=== PATIENT | female | born 1950 | race Caucasian/White ===

== ENCOUNTER 2018-10-19 07:16 | Inpatient (IN) | payer MEDICARE ==
[~2018-10-19] VITALS: Ht 160 cm; Wt 109.8 kg
[~2018-10-19 07:16] MED LIST: AC325T; AC325T PO; ACCUFLORA PO; ACID1TAB PO; ACTOS15 MG; ACTOS15 MG PO; AMIO200T4 PO; AMLO10TA82 PO; AMLO5TAB2 PO; APIX5TAB PO; APIX5TAB2 PO; ASCO500T20 PO; ASP81CT PO; ASP81TEC PO; ASPI-245 PO; ASPI-587 PO; ASPI-892; ATEN25TA; ATRV10T PO; B12; BISM262T13 PO; BSC10SU PR; CEFU250T11 PO; CEPH500C PO; CHOL2000 PO; CITA10TA PO; COD1CAPS16 PO; CYAN100021 PO; DABI150C2 PO; DILT240C53 PO; DXCC100C PO; Diltiazem Hcl PO; ENLP2.5T PO; FERR27TA PO; FRSM40T PO; FURO-125 PO; FURO10VI IV; FURO40TA4 PO; GLIM4TAB PO; GLMP1T PO; GLMP2T PO; GLMP4T; GLMP4T PO; INSASP10V; INSASP10V SQ; INSR1U SC; INSU100C; INSU100I23 SC; IRBE1TAB18; LACT1CAP57 PO; LISI20TA PO; LISI40TA PO; LVT.025T PO; MECL25TA56 PO; METR-145 PO; MTP50T PO; MTR250T PO; MULT-1029 PO; NS10S IV; NST15PW TOP; NTR.4SL; NYST15CR3 TOP; NYST1POW15 TOP; ONDAN4ODT PO; OXC5T PO; Oxygen; PANT40TA3 PO; PNT40TEC PO; POLY17PO23 PO; POTA10CA43 PO; PREPARATION H S48 EA PR; PROM25TA14 PO; Polyethylene Glycol PO; RT-COMBINH IH; SCOP1PAT TD; SENN1TAB76 PO; SITA1TAB6; SITA1TAB6 PO; SPIR25TA PO; SPRN25T PO; SULF1TAB38 PO; TEMA15CA54
--- NOTE | 2018-10-19 07:45 | NUR ---
Pt reports not taking any home meds at this time.
--- NOTE | 2018-10-19 08:01 | ED General ---
General Chief Complaint: Cardiac/General Problems Stated Complaint: SWELLING;CONSTIPATION Source of Information: Patient Exam Limitations: No Limitations History of Present Illness Date Seen by Provider: Oct 19, 2018 Time Seen by Provider: 07:30 Initial Comments Here with report of constipation stating that she has not had a bowel movement for 2 days. Also complains of swelling of her legs and not feeling well. She states that she has had a air condition for several days and has been using hands. She states it's not helping very much. She has had problems essentially over the last week. She called her doctor's office and they were unable to get appointment for her until later this month for the patient. Today she was increasingly weak and not feeling well. Her son brought her for further evaluation. Denies chest pain specifically but is short of breath. States that she thinks she may be dehydrated but also notes that her legs are increasingly swollen. Has history of A. fib that was previously controlled but seems to be somewhat out of control currently with heart rate greater than 100. Did have a fall within the last week and states she bumped her head on the left side. Timing/Duration: 1 Week Severity: Moderate Modifying Factors: improves with Rest Associated Systoms: No Chest Pain, No Cough, No Fever/Chills, No Nausea/Vomiting; Shortness of Air, Weakness Allergies and Home Medications Allergies Coded Allergies: No Known Drug Allergies (Verified , 12/29/08) Uncoded Allergies: "LITTLE BLUE PILL" (Allergy, Mild, 12/29/08) Home Medications Amiodarone HCl 200 Mg Tablet, 400 MG PO DAILY, (Reported) TAKES 2 (200MG) TABLETS Diltiazem HCl 240 Mg Cap.er.24h, 240 MG PO DAILY, (Reported) Furosemide 20 Mg Tablet, 20 MG PO DAILY, (Reported) L. Acidophilus/Bulgaricus 1 Each Tablet, 1 TAB.CHEW PO TID Prescribed by: CAITY CRANE on 06/10/15950 Levothyroxine Sodium 25 Mcg Tablet, 25 MCG PO DAILY, (Reported) Metronidazole 500 Mg Tablet, 500 MG PO TID Prescribed by: CAITY CRANE on 06/10/15950 Pantoprazole Sodium 40 Mg Tablet.dr, 40 MG PO DAILY, (Reported) Potassium Chloride 10 Meq Capsule.sa, 10 MEQ PO EVERY OTHER DAY, (Reported) Promethazine HCl 25 Mg Tablet, 12.5-25 MG PO Q8H PRN for NAUSEA/VOMITING, (Reported) Sitagliptin Phos/Metformin Hcl 1 Each Tablet, 1 TAB PO BID, (Reported) Spironolactone 25 Mg Tablet, 25 MG PO BID, (Reported) Patient Home Medication List Home Medication List Reviewed: Yes Review of Systems Review of Systems Constitutional: see HPI; No chills, No fever EENTM: no symptoms reported, other (hx of macular degeneration and retinal detachment. Has limited or no vision.) Respiratory: no symptoms reported Cardiovascular: No chest pain; edema Gastrointestinal: No abdominal pain; constipation; No nausea, No vomiting Genitourinary: no symptoms reported : No Musculoskeletal: no symptoms reported Skin: no symptoms reported Psychiatric/Neurological: Denies Headache; Weakness All Other Systems Reviewed Negative Unless Noted: Yes Past Pzhkyhr-Mlvfzi-Xrvsbp Hx Past Med/Social Hx: Reviewed Nursing Past Med/Soc Hx Patient Social History Alcohol Use: Denies Use Recreational Drug Use: No Smoking Status: Never a Smoker 2nd Hand Smoke Exposure: No Recent Foreign Travel: No Contact w/Someone Who Travel: No Immunizations Up To Date Tetanus Booster (TDap): Unknown Date of Pneumonia Vaccine: Apr 11, 2012 Date of Influenza Vaccine: Feb 28, 2013 Seasonal Allergies Seasonal Allergies: Yes Past Medical History Surgeries: Yes Abdominal, Section, Orthopedic, Vascular Surgery Respiratory: Yes Pulmonary Embolism Currently Using CPAP: No Currently Using BIPAP: No Cardiac: Yes Atrial Fibrillation, Chronic Edema/Swelling, Heart Murmur, High Cholesterol, Hypertension, Peripheral Vascular Neurological: Yes Stroke, TIA Reproductive Disorders: Yes 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 Sexually Transmitted Disease: No HIV/AIDS: No Genitourinary: Yes Kidney Infection, Kidney Stones, Renal Failure, UTI-Chronic Gastrointestinal: Yes Gastroesophageal Reflux, Hemorrhoids, Gall Bladder Disease Musculoskeletal: Yes Arthritis Endocrine: Yes Diabetes, Non-Insulin dep HEENT: Yes Cataract, Macular Degeneration Loss of Vision: Bilateral Hearing Impairment: Denies Psychosocial: No Adverse Reaction/Blood Tranf: No Family Medical History Reviewed Nursing Family Hx Cardiovascular disease 03 MOTHER (stroke) 19 FATHER Diabetes mellitus 19 FATHER Heart disease 19 FATHER Heart Disease, Diabetes, Hypertension Physical Exam Vital Signs Vital Signs - First Documented 10/19/18 07:24 Temp 96.2 Pulse 111 Resp 22 B/P (MAP) 141/102 (115) Pulse Ox 97 O2 Delivery Room Air Capillary Refill : Greater Than 3 Seconds Height, Weight, BMI Height: 5'3" Weight: 190lbs. 0oz. [id number]; 30.89 BMI Method:Estimated General Appearance: No Apparent Distress, WD/WN HEENT: Pharynx Normal, Other (unequal pupil sizes patient states that is normal. She is essentially blind. Right pupil greater than left.) Neck: Non Tender, Supple Respiratory: Lungs Clear, Normal Breath Sounds Cardiovascular: Regular Rate, Rhythm, No Murmur Gastrointestinal: Non Tender, Soft Back: Normal Inspection, No CVA Tenderness, No Vertebral Tenderness Extremity: Normal Range of Motion, Non Tender, Pedal Edema (2+ to level of the knee bilateral) Neurologic/Psychiatric: Alert, Oriented x3 Skin: Normal Color, Warm/Dry Progress/Results/Core Measures Suspected Sepsis SIRS Temperature: Pulse: Respiratory Rate: Laboratory Tests 10/19/18 08:11: White Blood Count 9.3 Blood Pressure / Mean: Laboratory Tests 10/19/18 08:11: Creatinine 1.62H, INR Comment 1.2, Platelet Count 218, Total Bilirubin 1.0 Results/Orders Lab Results Laboratory Tests Test 10/19/18 08:11 10/19/18 08:44 Range/Units White Blood Count 9.3 4.3-11.0 10^3/uL Red Blood Count 4.56 4.35-5.85 10^6/uL Hemoglobin 14.6 11.5-16.0 G/DL Hematocrit 42 35-52 % Mean Corpuscular Volume 91 80-99 FL Mean Corpuscular Hemoglobin 32 25-34 PG Mean Corpuscular Hemoglobin Concent 35 32-36 G/DL Red Cell Distribution Width 13.4 10.0-14.5 % Platelet Count 218 130-400 10^3/uL Mean Platelet Volume 8.8 7.4-10.4 FL Neutrophils (%) (Auto) 81 H 42-75 % Lymphocytes (%) (Auto) 12 12-44 % Monocytes (%) (Auto) 7 0-12 % Eosinophils (%) (Auto) 1 0-10 % Basophils (%) (Auto) 0 0-10 % Neutrophils # (Auto) 7.5 1.8-7.8 X 10^3 Lymphocytes # (Auto) 1.1 1.0-4.0 X 10^3 Monocytes # (Auto) 0.6 0.0-1.0 X 10^3 Eosinophils # (Auto) 0.1 0.0-0.3 10^3/uL Basophils # (Auto) 0.0 0.0-0.1 10^3/uL Prothrombin Time 15.4 H 12.2-14.7 SEC INR Comment 1.2 0.8-1.4 Activated Partial Thromboplast Time 28 24-35 SEC Sodium Level 122 *L 135-145 MMOL/L Potassium Level 4.3 3.6-5.0 MMOL/L Chloride Level 92 L 98-107 MMOL/L Carbon Dioxide Level 17 L 21-32 MMOL/L Anion Gap 13 5-14 MMOL/L Blood Urea Nitrogen 25 H 7-18 MG/DL Creatinine 1.62 H 0.60-1.30 MG/DL Estimat Glomerular Filtration Rate 31 BUN/Creatinine Ratio 15 Glucose Level 108 H 70-105 MG/DL Calcium Level 9.3 8.5-10.1 MG/DL Corrected Calcium 9.4 8.5-10.1 MG/DL Magnesium Level 1.9 1.8-2.4 MG/DL Total Bilirubin 1.0 0.1-1.0 MG/DL Aspartate Amino Transf (AST/SGOT) 17 5-34 U/L Alanine Aminotransferase (ALT/SGPT) 11 0-55 U/L Alkaline Phosphatase 62 40-136 U/L Troponin I 0.039 H <0.028 NG/ML B-Type Natriuretic Peptide 830.9 H <100.0 PG/ML Total Protein 7.0 6.4-8.2 GM/DL Albumin 3.9 3.2-4.5 GM/DL Thyroid Stimulating Hormone (TSH) 2.33 0.35-4.94 UIU/ML Urine Color YELLOW Urine Clarity CLEAR Urine pH 5 5-9 Urine Specific [place] 1.015 L 1.016-1.022 Urine Protein 3+ H NEGATIVE Urine Glucose (UA) NEGATIVE NEGATIVE Urine Ketones NEGATIVE NEGATIVE Urine Nitrite NEGATIVE NEGATIVE Urine Bilirubin NEGATIVE NEGATIVE Urine Urobilinogen NORMAL NORMAL MG/DL Urine Leukocyte Esterase NEGATIVE NEGATIVE Urine RBC (Auto) NEGATIVE NEGATIVE Urine RBC NONE /HPF Urine WBC NONE /HPF Urine Squamous Epithelial Cells NONE /HPF Urine Crystals NONE /LPF Urine Amorphous Sediment FEW TIAN URATES H /LPF Urine Bacteria NEGATIVE /HPF Urine Casts NONE /LPF Urine Mucus NEGATIVE /LPF Urine Culture Indicated NO My Orders Orders - KELLI CASSIDY MD BNP (10/19/18 07:36) Cbc With Automated Diff (10/19/18 07:36) Comprehensive Metabolic Panel (10/19/18 07:36) Magnesium (10/19/18 07:36) Protime With Inr (10/19/18 07:36) Partial Thromboplastin Time (10/19/18 07:36) Thyroid Stimulating Hormone (10/19/18 07:36) Troponin I (10/19/18 07:36) Ua Culture If Indicated (10/19/18 07:36) Chest 1 View, Ap/Pa Only (10/19/18 07:36) Ct Head Wo (10/19/18 07:36) Ed Iv/Invasive Line Start (10/19/18 07:36) Ekg Tracing (10/19/18 07:36) Monitor-Rhythm Ecg Trace Only (10/19/18 07:36) Ed Iv/Invasive Line Start (10/19/18 08:43) Ns Iv 500 Ml (Sodium Chloride 0.9%) (10/19/18 08:43) Medications Given in ED Current Medications Medications Dose Ordered Sig/Frances Route Start Time Stop Time Status Last Admin Dose Admin Sodium Chloride 500 ml @ 0 mls/hr Q0M ONCE IV 10/19/18 08:43 10/19/18 08:44 DC 10/19/18 09:25 500 MLS/HR Vital Signs/I&O 10/19/18 07:24 Temp 96.2 Pulse 111 Resp 22 B/P (MAP) 141/102 (115) Pulse Ox 97 O2 Delivery Room Air Capillary Refill : Greater Than 3 Seconds Progress Note : Progress Note Seen and evaluated. IV, labs, EKG and chest x-ray ordered. We will check BNP as well due to swelling of the legs. Monitor patient. 0845: Hyponatremia noted. Normal saline 500 mL bolus ordered. Monitor patient. 0941: I discussed the case with Dr. Crane. She accepts patient for admission, inpatient status. We will free water restrict and initiate gentle hydration. We will also consult Dr. Chan for the atrial fibrillation. BNP is a little elevated although there is not pulmonary edema on the chest x-ray. He has accepted patient in consult. All findings concerns were discussed with patient and family who agree with a dmission. ECG Initial ECG Impression Date: Oct 19, 2018 Initial ECG Impression Time: 07:34 Initial ECG Rate: 103 Initial ECG Rhythm: A Fib/Flutter Comment Atrial fibrillation with occasional PVC. Low voltage throughout. No evidence of ST elevation MA. Similar but changed from previous in that currently much faster rate from 09/09/15. Interpreted by me. Diagnostic Imaging Diagonstic Imaging: CT Plain Films/CT/US/NM/MRI: head Comments [facility] [place] [place] NAME: JASS YANG [facility] REC#: [id number] PT STATUS: REG ER : 1950 PHYSICIAN: KELLI CASSIDY MD ADMIT DATE: 10/19/18/ER Draft Date of Exam:10/19/18 CT HEAD WO PROCEDURE: CT head without contrast. TECHNIQUE: Multiple contiguous axial images were obtained through the brain without the use of intravenous contrast. Auto Exposure Controls were utilized during the CT exam to meet ALARA standards for radiation dose reduction. INDICATION: Fall 2 days ago striking the head. The exam compared 08/07/2015. There is a mild degree of cerebral cortical atrophy slightly progressed from the prior. There is some increased but chronic appearing periventricular white matter hypodensity, most likely reflect small vessel sequelae. Old lacunar infarct in the right cerebellar hemisphere chronic. No sulcal effacement. No focal or generalized cerebral edema. No evidence for elevation of the pressures. Orbits, sinuses and calvarium nonacute. IMPRESSION: Mild progressive chronic senescent changes and old ischemic sequelae. No hemorrhage, fracture, edema or acute appearing abnormalities. Dictated on workstation # [id number] Dict: 10/19/1826 Trans: 10/19/18 0834 CHELY [id number] Interpreted by: RALEIGH GARCIA Electronically signed by: Diagonstic Imaging: Xray Plain Films/CT/US/NM/MRI: chest Comments [facility] [place] [place] NAME: JASS YANG [facility] REC#: [id number] PT STATUS: REG ER : 1950 PHYSICIAN: KELLI CASSIDY MD ADMIT DATE: 10/19/18/ER Draft Date of Exam:10/19/18 CHEST 1 VIEW, AP/PA ONLY Portable erect AP chest at 752 hours. INDICATION: Chest pain, swelling. FINDINGS: The heart is enlarged but the heart does seem less prominent than noted on the prior exam of 09/09/2015. Both lungs also seem much better aerated than on the prior exam. However, there is a band of increased density in the left midlung. This could be related to mild atelectasis/pneumonia. The left upper lung and right lung are generally clear. The central pulmonary vascularity is slightly prominent but there is no evidence for overt failure. The mediastinum is not widened. The osseous structures are intact. IMPRESSION: 1. There is cardiomegaly. The band of increased density left midlung could be secondary to mild acute pneumonia/atelectasis. This could also be a sequela of patient's prior episode. 2. The central pulmonary vascularity is somewhat prominent but there is no evidence for overt failure. Dictated on workstation # [id number] Dict: 10/19/18 0758 Trans: 10/19/18 0817 [id number] Interpreted by: BLACK ROPER MD Electronically signed by: Departure Communication (Admissions) Time/Spoke to Admitting Phy: 09:41 Time/Spoke to Consulting Phy: 09:55 Impression Primary Impression: Hyponatremia Additional Impression: Atrial fibrillation Disposition: ADMITTED INPATIENT Condition: Stable Admissions Decision to Admit Reason: Admit from ER (General) Decision to Admit/Date: Oct 19, 2018 Time/Decision to Admit Time: 09:41 Departure-Patient Inst. Referrals: CAITY CRANE MD (PCP/Family) Primary Care Physician KELLI CASSIDY MD Oct 19, 2018 08:01
--- NOTE | 2018-10-19 08:18 | Diagnostic Imaging Report ---
Portable erect AP chest at 752 hours. INDICATION: Chest pain, swelling. FINDINGS: The heart is enlarged but the heart does seem less prominent than noted on the prior exam of 09/09/2015. Both lungs also seem much better aerated than on the prior exam. However, there is a band of increased density in the left midlung. This could be related to mild atelectasis/pneumonia. The left upper lung and right lung are generally clear. The central pulmonary vascularity is slightly prominent but there is no evidence for overt failure. The mediastinum is not widened. The osseous structures are intact. IMPRESSION: 1. There is cardiomegaly. The band of increased density left midlung could be secondary to mild acute pneumonia/atelectasis. This could also be a sequela of patient's prior episode. 2. The central pulmonary vascularity is somewhat prominent but there is no evidence for overt failure. Dictated by: Dictated on workstation # [id number]
[2018-10-19 08:19] LABS: BASOPHILS % (AUTO) 0 % (0-10); EOSINOPHILS # (AUTO) 0.1 10^3/uL (0.0-0.3); EOSINOPHILS % (AUTO) 1 % (0-10); HEMATOCRIT 42 % (35-52); HEMOGLOBIN 14.6 G/DL (11.5-16.0); LYMPHOCYTES # (AUTO) 1.1 X 10^3 (1.0-4.0); LYMPHOCYTES % (AUTO) 12 % (12-44); MEAN CORPUSCULAR HEMOGLOBIN 32 PG (25-34); MEAN CORPUSCULAR HGB CONC 35 G/DL (32-36); MEAN CORPUSCULAR VOLUME 91 FL (80-99); MEAN PLATELET VOLUME 8.8 FL (7.4-10.4); MONOCYTES # (AUTO) 0.6 X 10^3 (0.0-1.0); MONOCYTES % (AUTO) 7 % (0-12); NEUTROPHILS # (AUTO) 7.5 X 10^3 (1.8-7.8); NEUTROPHILS % (AUTO) 81 % (42-75); PLATELET COUNT 218 10^3/uL (130-400); RED CELL DISTRIBUTION WIDTH 13.4 % (10.0-14.5); WHITE BLOOD COUNT 9.3 10^3/uL (4.3-11.0)
[2018-10-19 08:32] LABS: INR 1.2 (0.8-1.4); PROTHROMBIN TIME PATIENT 15.4 SEC (12.2-14.7)
--- NOTE | 2018-10-19 08:34 | Diagnostic Imaging Report ---
PROCEDURE: CT head without contrast. TECHNIQUE: Multiple contiguous axial images were obtained through the brain without the use of intravenous contrast. Auto Exposure Controls were utilized during the CT exam to meet ALARA standards for radiation dose reduction. INDICATION: Fall 2 days ago striking the head. The exam compared 08/07/2015. There is a mild degree of cerebral cortical atrophy slightly progressed from the prior. There is some increased but chronic appearing periventricular white matter hypodensity, most likely reflect small vessel sequelae. Old lacunar infarct in the right cerebellar hemisphere chronic. No sulcal effacement. No focal or generalized cerebral edema. No evidence for elevation of the pressures. Orbits, sinuses and calvarium nonacute. IMPRESSION: Mild progressive chronic senescent changes and old ischemic sequelae. No hemorrhage, fracture, edema or acute appearing abnormalities. Dictated by: Dictated on workstation # [id number]
[2018-10-19 08:37] LABS: ALBUMIN 3.9 GM/DL (3.2-4.5); CALCIUM 9.3 MG/DL (8.5-10.1); CREATININE SERUM 1.62 MG/DL (0.60-1.30); MAGNESIUM 1.9 MG/DL (1.8-2.4); POTASSIUM 4.3 MMOL/L (3.6-5.0)
[2018-10-19] MEDS ORDERED: NS IV 500 ML 500 ML IV ONE (08:43)
[2018-10-19 09:03] LABS: BILIRUBIN,URINE NEGATIVE (NEGATIVE); CLARITY,URINE CLEAR; COLOR,URINE YELLOW; GLUCOSE, URINE (UA) NEGATIVE (NEGATIVE); KETONES,URINE NEGATIVE (NEGATIVE); LEUKOCYTE ESTERASE ,URINE NEGATIVE (NEGATIVE); NITRITE,URINE NEGATIVE (NEGATIVE); PH,URINE 5 (5-9); PROTEIN,URINE 3+ (NEGATIVE); UROBILINOGEN,URINE NORMAL (NORMAL)
[2018-10-19 09:14] LABS: AMORPHOUS SEDIMENT,UR FEW AMOR URATES /LPF; BACTERIA,URINE NEGATIVE /HPF
[2018-10-19 11:00] VITALS: BP 142/89
[2018-10-19 11:20] VITALS: BP 142/89
[2018-10-19] MEDS ORDERED: ONDANSETRON 4 MG/2 ML (SDV) Z0FRAN IV PRN (11:30)
[2018-10-19] MEDS: NS IV 1000 ML 1,000 ML IV SCH (11:59)
--- NOTE | 2018-10-19 12:05 | NUR ---
JASS YANG admitted to room 421-1, with an admitting diagnosis of afib, on 10/19/18 from ED via stretcher, accompanied by staff and family. JASS YANG introduced to surroundings, call light, bed controls, phone, TV, temperature control, lights, meal times, smoking policy, visitor policy, side rail policy, bathrooms and showers. Patient Rights given to patient in the handbook. JASS YANG verbalizes understanding that [facility] is not responsible for the loss or damage to any personal effects or valuables that are kept in the patients possession during their hospitalization. The following Patient Care Plans were discussed with the patient and family: Discharge Planning, pain management, dehydration, and medications. JASS YANG verbalizes understanding of Interdisciplinary Patient Education. Patient and/or family were informed about the Rapid Response Team and its purpose.
--- NOTE | 2018-10-19 12:48 | NUR ---
PATIENT STATES SHE DOES NOT TAKE ANY MEDICATIONS AT HOME. SHE TESTS HER BLOOD SUGAR BUT HAS NOT TAKEN ANY MEDICATION IN MONTHS. SHE STATES HER BS IS USUALLY IN A GOOD RANGE.
[2018-10-19 16:00] VITALS: BP 118/82
[2018-10-19 20:00] VITALS: BP 131/94
--- NOTE | 2018-10-19 21:16 | History & Physicial ---
History of Present Illness History of Present Illness Reason for visit/HPI PT IS A 68 Y/O FEMALE WHO IS KNOWN TO ME FROM CLINIC. SHE HAS NOT BEEN SEEN IN THE OFFICE FOR ABOUT A YEAR AND A HALF. SHE IS NOTORIOUSLY NON COMPLIANT WITH HER PRESCRIBED MEDICATION REGIMEN AND ADMITS THAT SHE HAS NOT BEEN TAKING HER BLOOD PRESSURE MEDICATION, NOR HER DIABETIC MEDICATION FOR THE PAST YEAR. APPARENTLY SHE HAD BEEN HAVING SOME INCREASE IN FATIGUE AND GENERALIZED WEAKNESS. SHE REPORTS THAT HER AIR CONDITIONING WENT OUT OF THE HOUSE AND SHE WAS UNABLE TO KEEP HERSELF COOL. SHE IS UNSURE IF SHE HAS BEEN DRINKING MORE FLUIDS/WATER OVER THE PAST FEW DAYS WITH THE INCREASED HEAT OF THE HOUSE. HER SON DOES NOT THINK THAT IT SEEMS LIKE SHE HAS BEEN CHANGING ANY OF HER USUAL ACTIVITIES/HABITS. Date of Admission Oct 19, 2018 at 10:00 Date Seen by a Provider: Oct 19, 2018 Time Seen by a Provider: 21:00 I consulted on this patient on 10/19/18 21:00 Attending Physician Caity Crane MD Admitting Physician Caity Crane MD Consult CARDIOLOGY Allergies and Home Medications Allergies Coded Allergies: No Known Drug Allergies (Verified , 12/29/08) Uncoded Allergies: "LITTLE BLUE PILL" (Allergy, Mild, 12/29/08) Home Medications No Active Prescriptions or Reported Meds Patient Home Medication List Home Medication List Reviewed: Yes Past Gmqpjfl-Lncfgb-Rxjafd Hx Patient Social History Marrital Status: Living Status: LIVES WITH HER SON AND DTR-IN-[place] Employed/Student: retired Alcohol Use: Denies Use Recreational Drug Use: No Smoking Status: Never a Smoker 2nd Hand Smoke Exposure: No Physical Abuse Screen: No Sexual Abuse: No Recent Foreign Travel: No Contact w/other who traveled: No Recent Hopitalizations: No Recent Infectious Disease Expo: No Immunizations Up To Date Tetanus Booster (TDap): Unknown Date of Pneumonia Vaccine: Apr 11, 2012 Date of Influenza Vaccine: Feb 28, 2013 Seasonal Allergies Seasonal Allergies: Yes Surgeries Yes Abdominal, Section, Orthopedic, Vascular Surgery Respiratory Yes Currently Using CPAP: No Currently Using BIPAP: No Cardiovascular Yes Atrial Fibrillation, Chronic Edema/Swelling, Heart Murmur, High Cholesterol, Hypertension, Peripheral Vascular Neurological Yes Stroke, TIA Reproductive System Hx Reproductive Disorders: Yes Sexually Transmitted Disease: No HIV/AIDS: No 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 Genitourinary Yes Kidney Infection, Kidney Stones, Renal Failure, UTI-Chronic Gastrointestinal Yes Gastroesophageal Reflux, Hemorrhoids, Gall Bladder Disease Musculoskeletal Yes Arthritis Endocrine History of Endocrine Disorders: Yes Endocrine Disorders: Diabetes, Non-Insulin dep HEENT History of HEENT Disorders: Yes HEENT Disorders: Cataract, Macular Degeneration Loss of Vision: Bilateral Hearing Impairment: Denies Cancer No Psychosocial History of Psychiatric Problem: No Integumentary History of Skin or Integumenta: Yes (YEAST RECURRENT ) Blood Transfusions History of Blood Disorders: No Adverse Reaction to a Blood Tr: No Reviewed Nursing Assessment Reviewed/Agree w Nursing PMH: Yes Family Medical History Significant Family History: Heart Disease, Diabetes, Hypertension Family Hx: Cardiovascular disease 03 MOTHER (stroke) 19 FATHER Diabetes mellitus 19 FATHER Heart disease 19 FATHER Review of Systems Constitutional: No chills, No fever; malaise, weakness EENTM: vision loss (CHRONIC BLINDNESS); No hoarseness, No throat pain Respiratory: No cough, No dyspnea on exertion Cardiovascular: edema, palpitations Gastrointestinal: No abdominal pain; constipation; No diarrhea, No nausea, No vomiting Genitourinary: frequency Musculoskeletal: muscle weakness Skin: no symptoms reported Psychiatric/Neurological: Denies Anxiety, Denies Depressed, Denies Numbness; Weakness All Other Systems Reviewed Negative Unless Noted: Yes Physical Exam Vital Signs Vital Signs - First Documented 10/19/18 07:24 Temp 96.2 Pulse 111 Resp 22 B/P (MAP) 141/102 (115) Pulse Ox 97 O2 Delivery Room Air Capillary Refill : Less Than 3 Seconds Height, Weight, BMI Height: 5'3.00" Weight: 201lbs. 1.0oz. 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 REPEAT LABS TOMORROW MORNING. PERIPHERAL EDEMA - COMPRESSION OF LOWER EXTREMITIES, SMALL DOSE OF LASIX IV. 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 DIABETES MELLITUS - PER PATIENT - HER FSBS HAVE BEEN CONTROLLED WITHOUT MEDICATIONS - MONITOR BLOOD GLUCOSE. BLINDNESS - SUPPORTIVE CARE. CHRONIC MEDICATION NON-COMPLIANCE Admission Diagnosis HYPONATREMIA PERIPHERAL EDEMA HYPERTENSION ATRIAL FIBRILLATION CAD DIABETES MELLITUS BLINDNESS CHRONIC MEDICATION NON-COMPLIANCE Admission Status: Inpatient Order (span 2 midnights) Reason for Inpatient Admission: inpatient admission for iv fluids, monitoring of labs and will consider discharge on tuesday if labs and symptoms have improved Clinical Quality Measures DVT/VTE Risk/Contraindication: Risk Factor Score Per Nursin RFS Level Per Nursing on Admit: 4+=Very High CAITY CRANE MD Oct 19, 2018 21:16
--- NOTE | 2018-10-19 23:40 | Consultation-Cardiology ---
HPI-Cardiology Cardiology Consultation: Date of Consultation 10/19/18 Date of Admission Attending Physician Marcia Crane MD Admitting Physician Marcia Crane MD Consulting Physician Leora CHAN MD HPI: Time Seen by a Provider: 16:00 Chief Complaint: Nonspecific symptoms. This is a 68-year-old lady with history of atrial fibrillation. She presents with constipation. Lower extremity swelling. She also complains of becoming weak. She does not have any chest pain but occasionally has shortness of breath. She presented with atrial fibrillation with rapid ventricular rate. Review of Systems-Cardiology Review of Systems Constitutional: As described under HPI; No As described under HPI, No no symptoms reported, No chills, No fever, No lightheadedness Eyes: No As described under HPI, No no symptoms reported, No blindness, No blurred vision, No contact lenses, No drainage, No decreased acuity, No foreign body sensation, No pain, No vision change Ears/Nose/Throat: No As described under HPI, No no symptoms reported, No chronic hearing loss, No ear discharge, No ear pain, No nasal drainage, No ulcerations Respiratory: No no symptoms reported; As described under HPI; No As described under HPI, No cough, No orthopnea, No shortness of breath, No SOB with excertion Cardiovascular: No no symptoms reported; As described under HPI; No As described under HPI, No chest pain, No edema, No irregular heart rate, No lightheadedness; palpitations Gastrointestinal: No no symptoms reported; As described under HPI; No abdomen distended, No abdominal pain, No blood streaked bowels, No constipation, No diarrhea, No nausea, No vomiting, No stool coloration changes Genitourinary: No As described under HPI, No burning, No dysuria, No discharge, No frequency, No flank pain, No hematuria, No urgency : No Skin: No rash, No skin related problems, No ulcerations Psychiatric/Neurological: No anxiety, No depression, No seizure, No focal weakness, No syncope Hematologic: No bleeding abnormalities All Other Systems Reviewed Negative Unless Noted: Yes [id number] Hx Patient Social History Alcohol Use: Denies Use Recreational Drug Use: No Smoking Status: Never a Smoker 2nd Hand Smoke Exposure: No Recent Foreign Travel: No Recent Infectious Disease Expo: No Hospitalization with Isolation: Denies Immunizations Up To Date Tetanus Booster (TDap): Unknown Date of Pneumonia Vaccine: Apr 11, 2012 Date of Influenza Vaccine: Feb 28, 2013 Past Medical History PMH As described under Assessment. Family Medical History Family History: Cardiovascular disease 03 MOTHER (stroke) 19 FATHER Diabetes mellitus 19 FATHER Heart disease 19 FATHER Allergies and Home Medications Allergies Coded Allergies: No Known Drug Allergies (Verified , 12/29/08) Uncoded Allergies: "LITTLE BLUE PILL" (Allergy, Mild, 12/29/08) Home Medications No Active Prescriptions or Reported Meds Patient Home Medication List Home Medication List Reviewed: Yes Physical Exam-Cardiology Physical Exam Vital Signs/I&O 10/19/18 10/19/18 10/19/18 10/19/18 13:08 16:00 19:00 20:00 Temp 97.4 97.2 Pulse 87 90 129 103 Resp 20 18 B/P (MAP) 118/82 (94) 131/94 (106) Pulse Ox 97 97 O2 Delivery Room Air Room Air 10/19/18 20:45 O2 Delivery Room Air 10/20/18 00:00 Intake Total 600 ml Balance 600 ml Capillary Refill : Less Than 3 Seconds Constitutional: appears stated age, AAO x 3; No apparent distress; well- developed, well-nourished HEENT: PERRL; No discharge; hearing is well preserved, oral hygience is good; No ulceration, No xanthelasmas are seen Neck: No carotid bruit; carotid pulses are 2 + bilaterally Respiratory: chest is bilaterally symmetric, lungs clear to auscultation Cardiovascular: irregularly irregular, tachycardia, S1 and S2 Gastrointestinal: No tender, No soft, No round, No distended, No pulsatile mass, No organomegaly, No guarding, No rebound, No tenderness, No hernia, No mass, No audible bowel sounds, No abnormal bowel sounds, No abdominal bruits, No spleenomegaly, No other Rectal: deferred Extremities: No normal range of motion, No non-tender, No normal inspection, No pedal edema, No calf tenderness, No normal capillary refill, No pelvis stable, No calf tenderness, No inflammation, No pedal edema, No slow capillary refill, No swelling, No other, No abrasion, No clubbing, No cyanosis, No ecchymosis, No laceration, No no lower extremity edema bilateral, No significant edema, No tenderness, No wound Neurologic/Psychiatric: alert, oriented x 3, power is 5/5 both on sides Skin: No rash, No ulcerations Data Review Labs Laboratory Tests 10/19/18 08:11: White Blood Count 9.3, Red Blood Count 4.56, Hemoglobin 14.6, Hematocrit 42, Mean Corpuscular Volume 91, Mean Corpuscular Hemoglobin 32, Mean Corpuscular Hemoglobin Concent 35, Red Cell Distribution Width 13.4, Platelet Count 218, Mean Platelet Volume 8.8, Neutrophils (%) (Auto) 81H, Lymphocytes (%) (Auto) 12, Monocytes (%) (Auto) 7, Eosinophils (%) (Auto) 1, Basophils (%) (Auto) 0, Neutrophils # (Auto) 7.5, Lymphocytes # (Auto) 1.1, Monocytes # (Auto) 0.6, Eosinophils # (Auto) 0.1, Basophils # (Auto) 0.0, Prothrombin Time 15.4H, INR Comment 1.2, Activated Partial Thromboplast Time 28, Sodium Level 122*L, Potassium Level 4.3, Chloride Level 92L, Carbon Dioxide Level 17L, Anion Gap 13, Blood Urea Nitrogen 25H, Creatinine 1.62H, Estimat Glomerular Filtration Rate 31, BUN/Creatinine Ratio 15, Glucose Level 108H, Calcium Level 9.3, Corrected Calcium 9.4, Magnesium Level 1.9, Total Bilirubin 1.0, Aspartate Amino Transf (AST/SGOT) 17, Alanine Aminotransferase (ALT/SGPT) 11, Alkaline Phosphatase 62, Troponin I 0.039H, B-Type Natriuretic Peptide 830.9H, Total Protein 7.0, Albumin 3.9, Thyroid Stimulating Hormone (TSH) 2.33 10/19/18 08:44: Urine Color YELLOW, Urine Clarity CLEAR, Urine pH 5, Urine Specific [place] 1.015L, Urine Protein 3+H, Urine Glucose (UA) NEGATIVE, Urine Ketones NEGATIVE, Urine Nitrite NEGATIVE, Urine Bilirubin NEGATIVE, Urine Urobilinogen NORMAL, Urine Leukocyte Esterase NEGATIVE, Urine RBC (Auto) NEGATIVE, Urine RBC NONE, Urine WBC NONE, Urine Squamous Epithelial Cells NONE, Urine Crystals NONE, Urine Amorphous Sediment FEW TIAN URATESH, Urine Bacteria NEGATIVE, Urine Casts NONE, Urine Mucus NEGATIVE, Urine Culture Indicated NO ECG Impression ECG Initial ECG Impression: Atrial Fibrillation w/RVR A/P-Cardiology Assessment/Admission Diagnosis Atrial fibrillation with rapid ventricular rate, Hyponatremia, Hypertension, Diabetes, Peripheral edema, Acute on chronic kidney injury, Positive troponin, Positive BNP Plan Patient does not consent to oral anticoagulation therapy. I discussed at length about the risk of stroke however the patient does not want any bleeding. We will continue with rate control. I'll recommend an echocardiogram. Mild abnormal troponin. Although she does not have any significant chest pain but has mild shortness of breath. Will recommend Lexiscan stress test. Hyponatremia, deferred to Dr. Crane. Acute on chronic kidney injury, unclear etiology. Diabetic nephropathy as a differential. Thank you for your consultation. Please call me if you have any questions. Giovani Chan MD, FACP, FACC, FSCAI, FHRS, CCDS Interventional Cardiology Cardiac Electrophysiology Vascular Medicine and Endovascular Interventions Clinical Quality Measures DVT/VTE Risk/Contraindication: Risk Factor Score Per Nursin RFS Level Per Nursing on Admit: 4+=Very High Leora CHAN MD Oct 19, 2018 23:40
[2018-10-20] VITALS (8 sets, daily range): BP systolic 102–182; BP diastolic 53–98
[2018-10-20 06:33] LABS: BASOPHILS % (AUTO) 0 % (0-10); EOSINOPHILS # (AUTO) 0.1 10^3/uL (0.0-0.3); EOSINOPHILS % (AUTO) 1 % (0-10); HEMATOCRIT 40 % (35-52); HEMOGLOBIN 13.8 G/DL (11.5-16.0); LYMPHOCYTES # (AUTO) 1.1 X 10^3 (1.0-4.0); LYMPHOCYTES % (AUTO) 13 % (12-44); MEAN CORPUSCULAR HEMOGLOBIN 31 PG (25-34); MEAN CORPUSCULAR HGB CONC 34 G/DL (32-36); MEAN CORPUSCULAR VOLUME 91 FL (80-99); MEAN PLATELET VOLUME 8.9 FL (7.4-10.4); MONOCYTES # (AUTO) 0.8 X 10^3 (0.0-1.0); MONOCYTES % (AUTO) 9 % (0-12); NEUTROPHILS # (AUTO) 6.6 X 10^3 (1.8-7.8); NEUTROPHILS % (AUTO) 77 % (42-75); PLATELET COUNT 213 10^3/uL (130-400); RED CELL DISTRIBUTION WIDTH 13.7 % (10.0-14.5); WHITE BLOOD COUNT 8.6 10^3/uL (4.3-11.0)
[2018-10-20] MEDS: NS IV 1000 ML 1,000 ML IV SCH (06:42)
[2018-10-20 06:57] LABS: ALBUMIN 3.5 GM/DL (3.2-4.5); BILIRUBIN,TOTAL 0.6 MG/DL (0.1-1.0); CALCIUM 8.9 MG/DL (8.5-10.1); CREATININE SERUM 1.51 MG/DL (0.60-1.30); POTASSIUM 4.2 MMOL/L (3.6-5.0); TOTAL PROTEIN 6.4 GM/DL (6.4-8.2)
--- NOTE | 2018-10-20 07:23 | NUR ---
PHYSICIAN NOTIFIED OF SODIUM LEVEL. NNO
[2018-10-20] MEDS: CATHETER FLUSH 10 ML SYR IV PRN (07:31)
[2018-10-20] MEDS ORDERED: REGADENOSON 0.4 MG/5 ML SYR (LEXISCAN) IV ONE ×2 (08:32→09:15)
--- NOTE | 2018-10-20 10:06 | Progress Note ---
Subjective Date Seen by a Provider: Oct 20, 2018 Time Seen by a Provider: 08:00 Subjective/Events-last exam PT REPORTS THAT SHE IS FEELING FATIGUED, SHE DOES NOT HAVE DIZZINESS, SHE DOES NOT HAVE ABDOMINAL PAIN - HAD A BOWEL MOVEMENT LAST NIGHT. SHE STATES THAT SHE DOES NO HAVE CHEST PAIN. Review of Systems General: No Chills; Fatigue HEENT: No Head Aches Pulmonary: No Dyspnea; Cough Cardiovascular: Palpitations, Edema; No: Chest Pain Gastrointestinal: No: Nausea, Abdominal Pain Genitourinary: No Dysuria; Frequency Neurological: Weakness; No: Confusion Objective Exam Last Set of Vital Signs Vital Signs Date Time Temp Pulse Resp B/P (MAP) Pulse Ox O2 Delivery O2 Flow Rate FiO2 10/20/18 09:13 109 20 98 Room Air 10/20/18 08:42 153/86 (108) 10/20/18 04:00 97.6 Capillary Refill : Less Than 3 Seconds I&O Intake and Output 10/20/18 00:00 Intake Total 1100 ml Balance 1100 ml Intake Oral 600 ml IV Total 500 ml # Voids 3 # Bowel Movements 2 Daily Weight Change No No General: Alert, Oriented X3, Cooperative HEENT: Atraumatic Neck: Supple Lungs: Clear to Auscultation, Normal Air Movement Heart: Other (TACHYCARDIA) Abdomen: Normal Bowel Sounds, Soft, No Tenderness Extremities: Other (EDEMA TO LOWER LEGS FROM FEET TO LOWER THIGHS) Skin: No Rashes, No Breakdown Neuro: Cranial Nerves 3-12 NL Psych/Mental Status: Mental Status NL, Mood NL Results Lab Laboratory Tests 10/20/18 05:40: White Blood Count 8.6, Red Blood Count 4.42, Hemoglobin 13.8, Hematocrit 40, Mean Corpuscular Volume 91, Mean Corpuscular Hemoglobin 31, Mean Corpuscular Hemoglobin Concent 34, Red Cell Distribution Width 13.7, Platelet Count 213, Mean Platelet Volume 8.9, Neutrophils (%) (Auto) 77H, Lymphocytes (%) (Auto) 13, Monocytes (%) (Auto) 9, Eosinophils (%) (Auto) 1, Basophils (%) (Auto) 0, Neutrophils # (Auto) 6.6, Lymphocytes # (Auto) 1.1, Monocytes # (Auto) 0.8, Eosinophils # (Auto) 0.1, Basophils # (Auto) 0.0, Sodium Level 125*L, Potassium Level 4.2, Chloride Level 97L, Carbon Dioxide Level 13L, Anion Gap 15H, Blood Urea Nitrogen 26H, Creatinine 1.51H, Estimat Glomerular Filtration Rate 34, BUN/Creatinine Ratio 17, Glucose Level 100, Calcium Level 8.9, Corrected Calcium 9.3, Magnesium Level 2.0, Total Bilirubin 0.6, Aspartate Amino Transf (AST/SGOT) 16, Alanine Aminotransferase (ALT/SGPT) 12, Alkaline Phosphatase 57, Total Protein 6.4, Albumin 3.5 Assessment/Plan Assessment/Plan Assess & Plan/Chief Complaint HYPONATREMIA PERIPHERAL EDEMA HYPERTENSION ATRIAL FIBRILLATION CAD DIABETES MELLITUS BLINDNESS CHRONIC MEDICATION NON-COMPLIANCE HYPONATREMIA - IMPROVED FROM LAST NIGHT- PT ON FLUID RESTRICTION WELL A SMALL DOSE OF NORMAL SALINE CONTINUOUSLY. REPEAT LABS TOMORROW MORNING. PERIPHERAL EDEMA - COMPRESSION OF LOWER EXTREMITIES, SMALL DOSE OF LASIX IV. - AND LEANN HOSE ON LOWER LEGS TO THIGHS. AFIB - PT HAS REFUSED ALL OF HER MEDICATIONS, HAS NOT BEEN TO SEE THE HOMICIDE SQUAD CAPTAIN FOR QUITE A LONG TIME - DEFER TO CARDIOLOGY CAD - SUPPORTIVE CARE HYPERTENSION WITH ATRIAL FIBRILLATION - DEFER TO CARDIOLOGY -PT DOWN IN STRESS TESTING THIS MORNING - WAITING ON CARDIOLOGY REPORT. DIABETES MELLITUS - PER PATIENT - HER FSBS HAVE BEEN CONTROLLED WITHOUT MEDICATIONS - MONITOR BLOOD GLUCOSE. BLINDNESS - SUPPORTIVE CARE. CHRONIC MEDICATION NON-COMPLIANCE DISCHARGE PLANNING - IF HER SODIUM LEVEL IS MORE IMPROVED AND DEPENDING ON THE CARDIAC REPORT - WE MAY CONSIDER DISCHARGE TO HOME. Clinical Quality Measures Admission Status Admission Dx HYPONATREMIA PERIPHERAL EDEMA HYPERTENSION ATRIAL FIBRILLATION CAD DIABETES MELLITUS BLINDNESS CHRONIC MEDICATION NON-COMPLIANCE DVT/VTE Risk/Contraindication: Risk Factor Score Per Nursin RFS Level Per Nursing on Admit: 4+=Very High CAITY ROSA MD Oct 20, 2018 10:06
--- NOTE | 2018-10-20 12:29 | Cardiology Progress Note ---
Cardiology SOAP Progress Note Subjective: Improved cardiac symptoms. Objective: I&O/Vital Signs 10/20/18 10/20/18 10/20/18 10/20/18 01:00 04:00 07:00 08:42 Temp 97.6 Pulse 91 94 89 102 Resp 22 20 B/P (MAP) 167/72 (103) 153/86 (108) Pulse Ox 96 97 O2 Delivery Room Air Room Air 10/20/18 10/20/18 10/20/18 10/20/18 09:13 10:30 10:32 11:53 Temp 98.2 97.9 Pulse 109 85 105 Resp 20 18 18 B/P (MAP) 179/98 (125) 134/76 (95) Pulse Ox 98 96 96 97 O2 Delivery Room Air Room Air Room Air Room Air 10/20/18 00:00 Intake Total 600 ml Balance 600 ml Weight (Pounds): 201 Weight (Ounces): 1.0 Weight (Calculated Kilograms): 91.489401 Constitutional: appears stated age, AAO x 3; No apparent distress; well- developed, well-nourished Respiratory: chest is bilaterally symmetric, lungs clear to auscultation Cardiovascular: irregularly irregular, tachycardia, S1 and S2 Gastrointestional: No tender, No soft, No round, No distended, No pulsatile mass, No organomegaly, No guarding, No rebound, No tenderness, No hernia, No mass, No audible bowel sounds, No abnormal bowel sounds, No abdominal bruits, No spleenomegaly, No other Extremities: No normal range of motion, No non-tender, No normal inspection, No pedal edema, No calf tenderness, No normal capillary refill, No pelvis stable, No calf tenderness, No inflammation, No pedal edema, No slow capillary refill, No swelling, No other, No abrasion, No clubbing, No cyanosis, No ecchymosis, No laceration, No no lower extremity edema bilateral, No significant edema, No tenderness, No wound Neurologic/Psychiatric: alert, oriented x 3, power is 5/5 both on sides Skin: No rash, No ulcerations Results/Procedures: Labs Laboratory Tests 10/20/18 05:40: White Blood Count 8.6, Red Blood Count 4.42, Hemoglobin 13.8, Hematocrit 40, Mean Corpuscular Volume 91, Mean Corpuscular Hemoglobin 31, Mean Corpuscular Hemoglobin Concent 34, Red Cell Distribution Width 13.7, Platelet Count 213, Mean Platelet Volume 8.9, Neutrophils (%) (Auto) 77H, Lymphocytes (%) (Auto) 13, Monocytes (%) (Auto) 9, Eosinophils (%) (Auto) 1, Basophils (%) (Auto) 0, Neutrophils # (Auto) 6.6, Lymphocytes # (Auto) 1.1, Monocytes # (Auto) 0.8, Eosinophils # (Auto) 0.1, Basophils # (Auto) 0.0, Sodium Level 125*L, Potassium Level 4.2, Chloride Level 97L, Carbon Dioxide Level 13L, Anion Gap 15H, Blood Urea Nitrogen 26H, Creatinine 1.51H, Estimat Glomerular Filtration Rate 34, BUN/Creatinine Ratio 17, Glucose Level 100, Calcium Level 8.9, Corrected Calcium 9.3, Magnesium Level 2.0, Total Bilirubin 0.6, Aspartate Amino Transf (AST/SGOT) 16, Alanine Aminotransferase (ALT/SGPT) 12, Alkaline Phosphatase 57, Total Protein 6.4, Albumin 3.5 A/P: Assessment/Dx: Atrial fibrillation with rapid ventricular rate, Hyponatremia, Hypertension, Diabetes, Peripheral edema, Acute on chronic kidney injury, Positive troponin, Positive BNP Plan: Patient does not consent to oral anticoagulation therapy. I discussed at length about the risk of stroke however the patient does not want any bleeding. We will continue with rate control. I'll recommend an echocardiogram. Mild abnormal troponin. Although she does not have any significant chest pain but has mild shortness of breath. Will recommend Lexiscan stress test. Hyponatremia, deferred to Dr. Crane. Acute on chronic kidney injury, unclear etiology. Diabetic nephropathy as a differential. Thank you for your consultation. Please call me if you have any questions. Giovani Chan MD, FACP, FACC, FSCAI, FHRS, CCDS Interventional Cardiology Cardiac Electrophysiology Vascular Medicine and Endovascular Interventions Leora CHAN MD Oct 20, 2018 12:29
--- NOTE | 2018-10-20 13:05 | NUR ---
DR ERICKSON PLACED ORDER IN [facility] FOR 50MG METOPROLOL BID. THIS NURSE REQUESTED PHARMACY TO START MED NOW INSTEAD OF 2100 FOR PT ELEVATED HR AND BLOOD PRESSURE.
--- NOTE | 2018-10-20 16:00 | NUR ---
PT REFUSING LEANN JIMENEZ
[2018-10-20] MEDS ORDERED: APIXABAN 5 MG (ELIQUIS) TABLET PO SCH (21:00)
[2018-10-20] MEDS: meTOprolol TARTRATE 50 MG (LOPRESSOR) TAB PO SCH (21:03)
[2018-10-21] MEDS: NS IV 1000 ML 1,000 ML IV SCH (02:37)
[2018-10-21 04:00] VITALS: BP 110/77
[2018-10-21 05:09] LABS: CALCIUM 8.4 MG/DL (8.5-10.1); CREATININE SERUM 1.71 MG/DL (0.60-1.30); MAGNESIUM 1.8 MG/DL (1.8-2.4); POTASSIUM 4.1 MMOL/L (3.6-5.0)
[2018-10-21 07:32] VITALS: BP 118/57
[2018-10-21] MEDS: meTOprolol TARTRATE 50 MG (LOPRESSOR) TAB PO SCH ×2 (09:43→20:03)
[2018-10-21 12:30] VITALS: BP 116/74
--- NOTE | 2018-10-21 13:44 | Cardiology Progress Note ---
Cardiology SOAP Progress Note Subjective: no cardiac complaints. Objective: I&O/Vital Signs 10/21/18 10/21/18 10/21/18 10/21/18 04:00 07:00 07:32 08:00 Temp 97.2 97.2 Pulse 91 77 62 Resp 18 18 B/P (MAP) 110/77 (88) 118/57 (77) Pulse Ox 93 96 96 O2 Delivery Room Air Room Air Room Air 10/21/18 12:29 Pulse 85 10/20/18 23:59 Intake Total 700 ml Balance 700 ml Weight (Pounds): 201 Weight (Ounces): 1.0 Weight (Calculated Kilograms): 91.158832 Constitutional: appears stated age, AAO x 3; No apparent distress; well- developed, well-nourished Respiratory: chest is bilaterally symmetric, lungs clear to auscultation Cardiovascular: irregularly irregular, S1 and S2 Gastrointestional: No tender, No soft, No round, No distended, No pulsatile mass, No organomegaly, No guarding, No rebound, No tenderness, No hernia, No mass, No audible bowel sounds, No abnormal bowel sounds, No abdominal bruits, No spleenomegaly, No other Extremities: No normal range of motion, No non-tender, No normal inspection, No pedal edema, No calf tenderness, No normal capillary refill, No pelvis stable, No calf tenderness, No inflammation, No pedal edema, No slow capillary refill, No swelling, No other, No abrasion, No clubbing, No cyanosis, No ecchymosis, No laceration, No no lower extremity edema bilateral, No significant edema, No tenderness, No wound Neurologic/Psychiatric: alert, oriented x 3, power is 5/5 both on sides Skin: No rash, No ulcerations Results/Procedures: Labs Laboratory Tests 10/21/18 04:20: Sodium Level 126L, Potassium Level 4.1, Chloride Level 100, Carbon Dioxide Level 17L, Anion Gap 9, Blood Urea Nitrogen 30H, Creatinine 1.71H, Estimat Glomerular Filtration Rate 30, BUN/Creatinine Ratio 18, Glucose Level 130H, Calcium Level 8.4L, Magnesium Level 1.8, B-Type Natriuretic Peptide 1194.6H A/P: Assessment/Dx: persistent atrial fibrillation, acute on chronic diastolic heart failure, Hyponatremia, Hypertension, Diabetes, Peripheral edema, Acute on chronic kidney injury, Positive troponin, Positive BNP Plan: Patient does not consent to oral anticoagulation therapy. I discussed at length about the risk of stroke however the patient does not want any bleeding. We will continue with rate control. acute on chronic diastolic heart failure, will give a dose of Lasix. Mild abnormal troponin. Although she does not have any significant chest pain but has mild shortness of breath. Lexiscan stress test done yesterday shows small anterior lateral reversible defect. Treat medically unless she has recurrent symptoms. Hyponatremia, deferred to Dr. Crane. Acute on chronic kidney injury, unclear etiology. Diabetic nephropathy as a differential. Thank you for your consultation. Please call me if you have any questions. Giovani Chan MD, FACP, FACC, FSCAI, FHRS, CCDS Interventional Cardiology Cardiac Electrophysiology Vascular Medicine and Endovascular Interventions Leora CHAN MD Oct 21, 2018 13:44
[2018-10-21] MEDS ORDERED: FUROSEMIDE 40 MG/4 ML INJ (LASIX) IVP NR (13:58)
[2018-10-21 16:32] VITALS: BP 129/64
--- NOTE | 2018-10-21 19:30 | Progress Note - Hospitalist ---
Subjective HPI/CC On Admission Date Seen by Provider: Oct 21, 2018 Time Seen by Provider: 18:45 Subjective/Events-last exam Patient denies shortness of breath or chest pain. She is asking about when she may be able to be discharged. She blames all medication on stomach upset her reason for noncompliance. Objective Exam Vital Signs Vital Signs Date Time Temp Pulse Resp B/P (MAP) Pulse Ox O2 Delivery O2 Flow Rate FiO2 10/21/18 16:32 97.8 81 18 129/64 (85) 95 Room Air Capillary Refill : Less Than 3 Seconds General Appearance: No Apparent Distress, WD/WN HEENT: Pharynx Normal Neck: Full Range of Motion, Normal Inspection, Non Tender, Supple Respiratory: Chest Non Tender, Lungs Clear, Normal Breath Sounds, No Accessory Muscle Use Cardiovascular: No Gallop, No Murmur, Irregularly Irregular Gastrointestinal: Normal Bowel Sounds, Non Tender, Soft Rectal: Deferred Back: Normal Inspection, No CVA Tenderness, No Vertebral Tenderness Extremity: Pedal Edema (Decreased from admission which was 2+ currently judged to be 1+ bilateral no ulceration no significant inflammatory change noted.) Neurologic/Psychiatric: Alert, Oriented x3, Normal Mood/Affect Skin: Warm/Dry Lymphatic: No Adenopathy Results/Procedures Lab Laboratory Tests 10/21/18 04:20 Patient resulted labs reviewed. Assessment/Plan Assessment and Plan Assess & Plan/Chief Complaint 1. Recurrent hyponatremia most likely due to volume overload continue fluid restriction sodium level up to 126 possible discharge tomorrow. 2. Type II diabetes mellitus with stage III chronic renal disease review laboratory work in the morning. 3. Elevated BNP likely due to renal insufficiency the patient this time does not appear to be in overt heart failure although several hours ago she did receive a dose of Lasix with over 800 mL of urine output. 4. Medication noncompliance the patient is convinced that about any medication she takes will cause stomach upset which will pose a significant problem in the future with likely ongoing medication noncompliance despite discussion of the importance of selected medication. Clinical Quality Measures DVT/VTE Risk/Contraindication: Risk Factor Score Per Nursin RFS Level Per Nursing on Admit: 4+=Very High SHREE JEWELL MD Oct 21, 2018 19:30
[2018-10-21] MEDS: CATHETER FLUSH 10 ML SYR IV PRN (20:04)
[2018-10-21 20:15] VITALS: BP 114/71
[2018-10-22] VITALS (18 sets, daily range): BP systolic 67–201; BP diastolic 26–138
[2018-10-22] MEDS: meTOprolol TARTRATE 50 MG (LOPRESSOR) TAB PO SCH ×2 (08:54→20:41)
[2018-10-22] MEDS ORDERED: NS 1000 ML IV BAG IV ONE (10:52)
[2018-10-22] MEDS ORDERED: EPINEPHrine 0.1 MG/ML 10 ML (HOSPIRA) SYR IJ ONE (10:52)
[2018-10-22 11:54] LABS: CALCIUM 8.5 MG/DL (8.5-10.1); CREATININE SERUM 1.96 MG/DL (0.60-1.30); POTASSIUM 4.1 MMOL/L (3.6-5.0)
[2018-10-22] MEDS ORDERED: METO-370 PO (12:19)
--- NOTE | 2018-10-22 12:29 | Discharge Summary ---
Diagnosis/Chief Complaint Date of Admission Oct 19, 2018 at 10:00 Date of Discharge Discharge Date: Oct 22, 2018 Discharge Summary Discharge Physical Exam Allergies: Coded Allergies: No Known Drug Allergies (Verified , 12/29/08) Uncoded Allergies: "LITTLE BLUE PILL" (Allergy, Mild, 12/29/08) Vitals & I&Os Vital Signs Date Time Temp Pulse Resp B/P (MAP) Pulse Ox O2 Delivery O2 Flow Rate FiO2 10/22/18 08:00 96 Room Air 10/22/18 08:00 97.3 63 18 111/70 (84) General Appearance: No Apparent Distress, Chronically ill, Obese Respiratory: Chest Non Tender, Lungs Clear, Normal Breath Sounds, No Accessory Muscle Use, No Respiratory Distress Cardiovascular: No Gallop, Systolic Murmur, Irregularly Irregular Extremity: Other (1-2+ bilateral peripheral edema to the mid tibia no ulceration or inflammatory change noted.) Hospital Course Was the Problem List Reviewed?: Yes Patient presented to the emergency room complaining about fatigue there been lack of air conditioning in the home for several days where she lives with a son baseline in poor general medical condition. Her sodium level was noted to be low at 122 with a creatinine of 1.5. She was admitted on IV fluids/normal saline with restriction of water intake. Sodium level increased to 128 by the time of her discharge her only medication being metoprolol 50 mg twice a day with control of underlying atrial fibrillation. She refuses anticoagulant therapy and is refused about any other medication and is been offered. Her discharge creatinine was 1.9 we discussed trying to keep fluid in the 2-3 L range with the importance of keeping her appointment with Dr. Crane scheduled in about 2 weeks. 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 Her son was present during discharge planning. She continues to refuse anticoagulant therapy secondary to concerns over bleeding and understands her increased risk for stroke considering her chronic atrial fibrillation. Her rate remained controlled on relatively low- dose beta dylon therapy. She will be converted to the succinate form 50 mg d aily metoprolol her only discharge medication. Discussed importance of avoiding nonsteroidal medications with Tylenol being the most appropriate pain medication if anything is needed. Will need a repeat basic metabolic panel on return visit to Dr. Crane's office. Labs (last 24 hrs) Laboratory Tests 10/22/18 11:20: Sodium Level 128L, Potassium Level 4.1, Chloride Level 103, Carbon Dioxide Level 12L, Anion Gap 13, Blood Urea Nitrogen 41H, Creatinine 1.96H, Estimat Glomerular Filtration Rate 25, BUN/Creatinine Ratio 21, Glucose Level 140H, Calcium Level 8.5 Patient resulted labs reviewed. Pending Labs Laboratory Tests 10/22/18 11:20: Sodium Level 128, Potassium Level 4.1, Chloride Level 103, Carbon Dioxide Level 12, Anion Gap 13, Blood Urea Nitrogen 41, Creatinine 1.96, Estimat Glomerular Filtration Rate 25, BUN/Creatinine Ratio 21, Glucose Level 140, Calcium Level 8.5 Discussion & Recommendations Discharge Planning: >30 minutes discharge planning Discharge Home Medications: Active Scripts Active Metoprolol Succinate 50 Mg Tab.er.24h 50 Mg PO DAILY 30 Days Instructions to patient/family Please see electronic discharge instructions given to patient. Clinical Quality Measures DVT/VTE Risk/Contraindication: Risk Factor Score Per Nursin RFS Level Per Nursing on Admit: 4+=Very High Copy Copies To 1: CAITY CRANE MD, MARK D MD Oct 22, 2018 12:28
--- NOTE | 2018-10-22 13:18 | NUR ---
SON AT BEDSIDE. READY FOR DISCHARGE. IV REMOVED LEFT THUMB. SITE CLEAR. TELEMETRY DC'D.
--- NOTE | 2018-10-22 13:32 | NUR ---
RX REVIEWED AND DC INSTRUCTIONS GIVEN TO PT AND SON BY REBECCA SANTA. VERBALIZED UNDERSTANDING.
--- NOTE | 2018-10-22 13:45 | NUR ---
PAPER CUTTER REPORTS SON WENT HOME TO GET PANTS. STATES PANTS HE BROUGHT DID NOT FIT. WILL CONTINUE TO DRESS PT.
--- NOTE | 2018-10-22 13:49 | NUR ---
CALLED TO ROOM BY RUBBER BELT SPLICER. REPORTS PTS LIPS BLUE. PT SITTING IN WC. RESPONDS AND ANSWERS QUESTIONS INITIALLY. PLAN TO GET PT TO BED. PT BECAME UNRESPONSIVE. TOTAL LIFT TO BED. AGONAL RESPIRATIONS AND VERY WEAK AND THREADY PULSE. CODE BLUE CALLED. SEE CODE BLUE SHEET.
--- NOTE | 2018-10-22 13:57 | NUR ---
SON ARRIVED. INFORMED OF PT CONDITION. STATES HE "WANTS EVERYTHING DONE."
--- NOTE | 2018-10-22 14:14 | NUR ---
TO ICU PER BED WITH RT AND CODE TEAM.
--- NOTE | 2018-10-22 14:18 | NUR ---
TIMELINE NOTE-- 1418--PT TRANSFERRED VIA BED TO [facility] S/P CODE BLUE ON 4TH FLOOR. PT ARRIVED ALREADY INTUBATED W/ RT BAGGING. NS BOLUS INFUSING. ABG OBTAINED, STAT CXR ORDERED. DR JEWELL AT BEDSIDE. PT PLACED ON BEDSIDE MONITORS. 1424- XRAY AT BEDSIDE. VENT SETTINGS: TV 450, RATE 16, PEEP 5, FIO2 60%. ETT MEASURES 23 @LIP. 1427- OG INSERTED AND PLACED ON LIS. 1433- PROPOFOL STARTED PT STARTING TO WAKE UP. INFUSING AT 20MCG/KG/HR--SEE EMAR FOR DETAILS 1435- IV STARTED BY THIS RN TO RIGHT UPPER ARM #20 GAUGE X1 ATTEMPT 1437-DR ERICKSON AT BEDSIDE. NEW ORDERS RECEIVED TO GIVE AMIO BOLUS AND START GTT 1441- 16 FR GIL INSERTED BY THIS RN. CLOUDY YELLOW URINE OUTPUT NOTED 1512- BP 70/38, DR JEWELL AT BEDSIDE. NEW ORDERS RECEIVED TO START LEVOPHED. 1515-ADDITIONAL IV STARTED BY THIS RN INTO LEFT FA, #20 X1 ATTEMPT. LEVOPHED STARTED AT 0.03 1516-BP 65/24, HR 46- LEVO INFUSING 1517- REPEAT ABG OBTAINED BY R.T. 1520- HR 43 BP 75/53 1529- DR SHEA CONSULTED TO PLACE CENTRAL LINE. DR JEWELL CONTINUES TO BE AT BEDSIDE. 1531- BP 160/76, HR 68 1535- DR FU NOTIFIED OF CONSULT AND GIVEN REPORT ON PT'S CONDITION. DR FU TO COME ASSESS PT. ADDITIONAL LAB ORDERS RECEIVED. 1547- 2AMPS BICARD GIVEN PER DR FU. 1601- RT DECREASED FIO2 TO 45%. Addendum: 10/22/18 at 1758 by DALLAS BONNER RN correction---propofol started at 20mcg/kg/min
[2018-10-22 14:33] LABS: ABG BASE EXCESS -12.4 MMOL/L (-2.5-2.5); ABG OXYGEN SATURATION 99 % (94-100); ABG PCO2 32 MMHG (35-45); ABG PO2 218 MMHG (79-93); ABG TCO2 14.5 MMOL/L (21.0-31.0)
[2018-10-22] MEDS ORDERED: D5W 100 ML IVPB 100 ML IV ONE (14:39)
[2018-10-22 14:40] LABS: ABG PH 7.25 (7.37-7.43); ALLENS TEST YES-POS; INSPIRED O2 60; VENTILATOR YES
[2018-10-22] MEDS ORDERED: AMIODARONE (OMNICELL DRIP KIT) 150 MG/3 ML IV ONE ×2 (14:40)
[2018-10-22 14:44] LABS: BASOPHILS # (AUTO) 0.1 10^3/uL (0.0-0.1); BASOPHILS % (AUTO) 0 % (0-10); EOSINOPHILS # (AUTO) 0.1 10^3/uL (0.0-0.3); EOSINOPHILS % (AUTO) 1 % (0-10); HEMATOCRIT 43 % (35-52); HEMOGLOBIN 14.5 G/DL (11.5-16.0); LYMPHOCYTES # (AUTO) 3.5 X 10^3 (1.0-4.0); LYMPHOCYTES % (AUTO) 28 % (12-44); MEAN CORPUSCULAR HEMOGLOBIN 32 PG (25-34); MEAN CORPUSCULAR HGB CONC 34 G/DL (32-36); MEAN CORPUSCULAR VOLUME 94 FL (80-99); MEAN PLATELET VOLUME 9.1 FL (7.4-10.4); MONOCYTES # (AUTO) 1.1 X 10^3 (0.0-1.0); MONOCYTES % (AUTO) 9 % (0-12); NEUTROPHILS # (AUTO) 7.6 X 10^3 (1.8-7.8); NEUTROPHILS % (AUTO) 61 % (42-75); PLATELET COUNT 240 10^3/uL (130-400); RED CELL DISTRIBUTION WIDTH 14.7 % (10.0-14.5); WHITE BLOOD COUNT 12.5 10^3/uL (4.3-11.0)
--- NOTE | 2018-10-22 14:44 | Diagnostic Imaging Report ---
PATIENT HISTORY: Post code intubation. TECHNIQUE: Frontal view of the chest COMPARISON: 10/19/2018 FINDINGS: The endotracheal tube is approximately 2 cm from the omaira. There is mild cardiomegaly with increased central vascular congestion and interstitial edema. There are small bilateral pleural effusions with associated atelectasis. No pneumothorax is seen. IMPRESSION: 1. The endotracheal tube is approximately 2 cm from the omaira. 2. Cardiomegaly with increased central vascular congestion and interstitial edema and small bilateral pleural effusions. Dictated by: Dictated on workstation # [id number]
[2018-10-22] MEDS ORDERED: NS IV 1000 ML 1,000 ML IV SCH ×2 (14:45→19:00)
[2018-10-22] MEDS ORDERED: AMIODARONE FOR BOLUS 150 MG in D5W 100 ML IVPB 100 ML IV ONE ×4 (14:45)
[2018-10-22] MEDS ORDERED: AMIODARONE INJECTION 450 MG in D5W IV SOLUTION (EXCEL) 250 ML IV SCH (14:45)
--- NOTE | 2018-10-22 14:45 | Code Blue Response-Hospitalist ---
General Date Seen/Responded 10/22/18 Source: RN/MD History of Present Illness Time seen by provider: 14:15 Initial Comments The patient was in the process of being discharge sitting up when nursing staff report that her lips became blue she then blacked out. LORENZO MICHAEL was called and the response team thought that she may have been in ventricular fibrillation. An ET tube was placed and 1 dose of epinephrine was given per the ET tube. Her IV had been removed and telemetry had been removed as well. While nurses knows that they've clinically had recovery of pulse and the patient became combative requiring 2 mg of Versed. Upon my arrival she was sedated with a blood pressure of 160/100. Chest anteriorly was clear heart tones were somewhat distant irregularly irregular. The patient has chronic atrial fibrillation at baseline. Extremities were warm and no mottling or cyanosis noted. O2 sats currently 96 percent on 60 percent ABG is pending. Twelve-lead EKG reveals baseline atrial fibrillation no ischemic changes noted. A ventricular couplet is present and on the monitor there've been occasional multiform PVCs with no other complex arrhythmias being noted. Dr. Chan was notified this evaluated the patient has initiated amiodarone. Acute coronary syndrome deemed to be less likely considering recent stress test that did not reveal any kind of a large area of reversible ischemia. Expect possible small bump in her troponin but if there is significant elevation or change in EKG he will consider cardiac catheterization. The patient has refused anticoagulant therapy for fear of bleeding. For this reason while pulmonary embolism is in the differential diagnosis I'm not going to be ordering any studies to look into this issue unless the patient were to change her mind and comply with longer term anticoagulant therapy. Timing/Duration: this afternoon Severity: severe Prior Episodes/Possible Cause: no prior episodes Allergies and Home Medications Allergies Coded Allergies: No Known Drug Allergies (Verified , 12/29/08) Uncoded Allergies: "LITTLE BLUE PILL" (Allergy, Mild, 12/29/08) Home Medications Metoprolol Succinate 50 Mg Tab.er.24h, 50 MG PO DAILY Prescribed by: SHREE JEWELL on 10/22/18 2174 Patient Home Medication List Home Medication List Reviewed: Yes Physical Exam Vital Signs Vital Signs - First Documented 10/19/18 07:24 Temp 96.2 Pulse 111 Resp 22 B/P (MAP) 141/102 (115) Pulse Ox 97 O2 Delivery Room Air Capillary Refill : Less Than 3 Seconds Height, Weight, BMI Height: 5'3.00" Weight: 201lbs. 1.0oz. 91.391925ce; 35.6 BMI Method:Stated General Appearance: obese Eyes: Bilateral Eye PERRL Neck: normal inspection Respiratory: lungs clear Cardiovascular: no murmur, irregularly irregular Gastrointestinal: soft Extremities: normal inspection (Other than some senile purpura and 1+ edema unremarkable), normal capillary refill, pedal edema (1-2+ bilaterally) Progress/Results/Core Measures Results/Orders Lab Results Laboratory Tests Test 10/19/18 08:11 10/19/18 08:44 10/20/18 05:40 10/21/18 04:20 Range/Units White Blood Count 9.3 8.6 4.3-11.0 10^3/uL Red Blood Count 4.56 4.42 4.35-5.85 10^6/uL Hemoglobin 14.6 13.8 11.5-16.0 G/DL Hematocrit 42 40 35-52 % Mean Corpuscular Volume 91 91 80-99 FL Mean Corpuscular Hemoglobin 32 31 25-34 PG Mean Corpuscular Hemoglobin Concent 35 34 32-36 G/DL Red Cell Distribution Width 13.4 13.7 10.0-14.5 % Platelet Count 218 213 130-400 10^3/uL Mean Platelet Volume 8.8 8.9 7.4-10.4 FL Neutrophils (%) (Auto) 81 H 77 H 42-75 % Lymphocytes (%) (Auto) 12 13 12-44 % Monocytes (%) (Auto) 7 9 0-12 % Eosinophils (%) (Auto) 1 1 0-10 % Basophils (%) (Auto) 0 0 0-10 % Neutrophils # (Auto) 7.5 6.6 1.8-7.8 X 10^3 Lymphocytes # (Auto) 1.1 1.1 1.0-4.0 X 10^3 Monocytes # (Auto) 0.6 0.8 0.0-1.0 X 10^3 Eosinophils # (Auto) 0.1 0.1 0.0-0.3 10^3/uL Basophils # (Auto) 0.0 0.0 0.0-0.1 10^3/uL Prothrombin Time 15.4 H 12.2-14.7 SEC INR Comment 1.2 0.8-1.4 Activated Partial Thromboplast Time 28 24-35 SEC Sodium Level 122 *L 125 *L 126 L 135-145 MMOL/L Potassium Level 4.3 4.2 4.1 3.6-5.0 MMOL/L Chloride Level 92 L 97 L 100 98-107 MMOL/L Carbon Dioxide Level 17 L 13 L 17 L 21-32 MMOL/L Anion Gap 13 15 H 9 5-14 MMOL/L Blood Urea Nitrogen 25 H 26 H 30 H 7-18 MG/DL Creatinine 1.62 H 1.51 H 1.71 H 0.60-1.30 MG/DL Estimat Glomerular Filtration Rate 31 34 30 BUN/Creatinine Ratio 15 17 18 Glucose Level 108 H 100 130 H 70-105 MG/DL Calcium Level 9.3 8.9 8.4 L 8.5-10.1 MG/DL Corrected Calcium 9.4 9.3 8.5-10.1 MG/DL Magnesium Level 1.9 2.0 1.8 1.8-2.4 MG/DL Total Bilirubin 1.0 0.6 0.1-1.0 MG/DL Aspartate Amino Transf (AST/SGOT) 17 16 5-34 U/L Alanine Aminotransferase (ALT/SGPT) 11 12 0-55 U/L Alkaline Phosphatase 62 57 40-136 U/L Troponin I 0.039 H <0.028 NG/ML B-Type Natriuretic Peptide 830.9 H 1194.6 H <100.0 PG/ML Total Protein 7.0 6.4 6.4-8.2 GM/DL Albumin 3.9 3.5 3.2-4.5 GM/DL Thyroid Stimulating Hormone (TSH) 2.33 0.35-4.94 UIU/ML Urine Color YELLOW Urine Clarity CLEAR Urine pH 5 5-9 Urine Specific [place] 1.015 L 1.016-1.022 Urine Protein 3+ H NEGATIVE Urine Glucose (UA) NEGATIVE NEGATIVE Urine Ketones NEGATIVE NEGATIVE Urine Nitrite NEGATIVE NEGATIVE Urine Bilirubin NEGATIVE NEGATIVE Urine Urobilinogen NORMAL NORMAL MG/DL Urine Leukocyte Esterase NEGATIVE NEGATIVE Urine RBC (Auto) NEGATIVE NEGATIVE Urine RBC NONE /HPF Urine WBC NONE /HPF Urine Squamous Epithelial Cells NONE /HPF Urine Crystals NONE /LPF Urine Amorphous Sediment FEW TIAN URATES H /LPF Urine Bacteria NEGATIVE /HPF Urine Casts NONE /LPF Urine Mucus NEGATIVE /LPF Urine Culture Indicated NO Test 10/22/18 11:20 10/22/18 14:15 10/22/18 14:20 Range/Units Sodium Level 128 L 135-145 MMOL/L Potassium Level 4.1 3.6-5.0 MMOL/L Chloride Level 103 98-107 MMOL/L Carbon Dioxide Level 12 L 21-32 MMOL/L Anion Gap 13 5-14 MMOL/L Blood Urea Nitrogen 41 H 7-18 MG/DL Creatinine 1.96 H 0.60-1.30 MG/DL Estimat Glomerular Filtration Rate 25 BUN/Creatinine Ratio 21 Glucose Level 140 H 70-105 MG/DL Calcium Level 8.5 8.5-10.1 MG/DL My Orders Orders - SHREE JEWELL MD Basic Metabolic Panel (10/22/18 10:31) Attending Discharge Inpt/Inobs (10/22/18 12:19) Chest 1 View, Ap/Pa Only (10/22/18 14:07) Arterial Blood Gas (10/22/18 14:08) Transfer - Bed/Room/Location (10/22/18 14:08) Arterial Blood Gas (10/22/18 14:24) Troponin I (10/22/18 14:24) Cbc With Automated Diff (10/23/18 05:00) Comprehensive Metabolic Panel (10/23/18 05:00) Troponin I (10/23/18 05:00) Echo W Doppler/Color Flow (10/22/18 14:24) Cbc With Automated Diff (10/22/18 14:36) Vital Signs/I&O 10/19/18 10/19/18 10/19/18 10/19/18 07:24 10:57 11:00 11:20 Temp 96.2 96.2 96.6 96.6 Pulse 111 91 69 69 Resp 22 20 20 20 B/P (MAP) 141/102 (115) 155/88 (110) 142/89 142/89 (106) Pulse Ox 97 99 99 99 O2 Delivery Room Air Room Air Room Air Room Air 10/19/18 10/19/18 10/19/18 10/19/18 13:08 16:00 19:00 20:00 Temp 97.4 97.2 Pulse 87 90 129 103 Resp 20 18 B/P (MAP) 118/82 (94) 131/94 (106) Pulse Ox 97 97 O2 Delivery Room Air Room Air 10/19/18 10/20/18 10/20/18 10/20/18 20:45 00:00 01:00 04:00 Temp 97.5 97.6 Pulse 105 91 94 Resp 20 22 B/P (MAP) 133/82 (99) 167/72 (103) Pulse Ox 94 96 O2 Delivery Room Air Room Air Room Air 10/20/18 10/20/18 10/20/18 10/20/18 07:00 08:42 09:13 10:30 Pulse 89 102 109 Resp 20 20 B/P (MAP) 153/86 (108) Pulse Ox 97 98 96 O2 Delivery Room Air Room Air Room Air 10/20/18 10/20/18 10/20/18 10/20/18 10:32 11:53 13:00 16:19 Temp 98.2 97.9 97.9 Pulse 85 105 96 100 Resp 18 18 18 B/P (MAP) 179/98 (125) 134/76 (95) 133/81 (98) Pulse Ox 96 97 95 O2 Delivery Room Air Room Air Room Air 10/20/18 10/20/18 10/20/18 10/20/18 19:00 19:26 20:00 23:17 Temp 98.0 98.1 Pulse 98 102 86 Resp 18 18 B/P (MAP) 142/78 (99) 102/53 (69) Pulse Ox 96 96 93 O2 Delivery Room Air Room Air Room Air 10/21/18 10/21/18 10/21/18 10/21/18 01:00 04:00 07:00 07:32 Temp 97.2 97.2 Pulse 66 91 77 62 Resp 18 18 B/P (MAP) 110/77 (88) 118/57 (77) Pulse Ox 93 96 O2 Delivery Room Air Room Air 10/21/18 10/21/18 10/21/18 10/21/18 08:00 12:29 12:30 16:32 Temp 97.8 97.8 Pulse 85 89 81 Resp 18 18 B/P (MAP) 116/74 (88) 129/64 (85) Pulse Ox 96 94 95 O2 Delivery Room Air Room Air Room Air 10/21/18 10/21/18 10/21/1819 19:00 20:00 20:15 00:00 Temp 97.6 97.3 Pulse 88 82 86 Resp 20 22 B/P (MAP) 114/71 (85) 133/76 (95) Pulse Ox 96 94 93 O2 Delivery Room Air Room Air Room Air 10/22/18 10/22/18 10/22/18 10/22/18 01:00 04:00 07:00 08:00 Temp 96.6 97.3 Pulse 76 78 78 63 Resp 20 18 B/P (MAP) 112/75 (87) 111/70 (84) Pulse Ox 93 97 O2 Delivery Room Air Room Air 10/22/18 08:00 Pulse Ox 96 O2 Delivery Room Air 10/22/18 00:00 Intake Total 1400 ml Output Total 200 ml Balance 1200 ml Blood Pressure Mean: 84 Diagnostic Imaging Diagonstic Imaging: Xray Plain Films/CT/US/NM/MRI: chest Time of Consult: 09:41 Clinical Quality Measures DVT/VTE Risk/Contraindication: Risk Factor Score Per Nursin RFS Level Per Nursing on Admit: 4+=Very High SHREE JEWELL MD Oct 22, 2018 14:45
[2018-10-22] MEDS: PROPOFOL DRIP (ICU) 100 ML IV SCH (14:52)
[2018-10-22] MEDS: AMIODARONE INJECTION 450 MG in D5W IV SOLUTION (EXCEL) 250 ML IV SCH (14:56)
[2018-10-22] MEDS ORDERED: NOREPINEPHRINE 4 MG/4 ML (LEVOPHED) AMP IV ONE (15:00)
[2018-10-22] MEDS ORDERED: NS (IVPB) 250 ML ONE (15:00)
[2018-10-22] MEDS: NS IV 1000 ML 1,000 ML IV SCH ×4 (15:26→18:58)
[2018-10-22] MEDS: NOREPINEPHRINE 4 MG in NS (IVPB) 250 ML IV SCH ×4 (15:27→23:56)
--- NOTE | 2018-10-22 15:28 | Cardiology Progress Note ---
Cardiology SOAP Progress Note Subjective: Patient was being discharged therefore IV line and telemetry was already discontinued. According to the nurse the patient had blue lips and agonal breathing. Pulses were still palpable however thready. ACLS was done, intubated. One dose of epinephrine was given which revived her to atrial fibrillation. She is intubated and ventilated. EKG does not show any significant ST deviation. Objective: I&O/Vital Signs 10/22/18 10/22/18 10/22/18 10/22/18 04:00 07:00 08:00 08:00 Temp 96.6 97.3 Pulse 78 78 63 Resp 20 18 B/P (MAP) 112/75 (87) 111/70 (84) Pulse Ox 93 97 96 O2 Delivery Room Air Room Air Room Air 10/22/18 10/22/18 10/22/18 10/22/18 14:33 14:52 14:57 15:00 Pulse 93 102 45 Resp 16 15 B/P (MAP) 93/60 67/56 (60) Pulse Ox 94 95 O2 Delivery Mechanical Ventilator O2 Flow Rate 60.00 FiO2 60 10/22/18 00:00 Intake Total 1400 ml Output Total 200 ml Balance 1200 ml Weight (Pounds): 201 Weight (Ounces): 1.0 Weight (Calculated Kilograms): 91.991069 Constitutional: appears stated age; No apparent distress; well-developed, well- nourished, other (intubated/ventilated) Respiratory: chest is bilaterally symmetric, lungs clear to auscultation, other (intubated/ventilated) Cardiovascular: irregularly irregular, S1 and S2 Gastrointestional: No tender, No soft, No round, No distended, No pulsatile mass, No organomegaly, No guarding, No rebound, No tenderness, No hernia, No mass, No audible bowel sounds, No abnormal bowel sounds, No abdominal bruits, No spleenomegaly, No other Extremities: No normal range of motion, No non-tender, No normal inspection, No pedal edema, No calf tenderness, No normal capillary refill, No pelvis stable, No calf tenderness, No inflammation, No pedal edema, No slow capillary refill, No swelling, No other, No abrasion, No clubbing, No cyanosis, No ecchymosis, No laceration, No no lower extremity edema bilateral, No significant edema, No tenderness, No wound Neurologic/Psychiatric: other (intubated/ventilated.) Skin: No rash, No ulcerations Results/Procedures: Labs Laboratory Tests 10/22/18 11:20: Sodium Level 128L, Potassium Level 4.1, Chloride Level 103, Carbon Dioxide Level 12L, Anion Gap 13, Blood Urea Nitrogen 41H, Creatinine 1.96H, Estimat Glomerular Filtration Rate 25, BUN/Creatinine Ratio 21, Glucose Level 140H, Calcium Level 8.5 10/22/18 14:15: Troponin I 0.029H 10/22/18 14:20: White Blood Count 12.5H, Red Blood Count 4.57, Hemoglobin 14.5, Hematocrit 43, Mean Corpuscular Volume 94, Mean Corpuscular Hemoglobin 32, Mean Corpuscular Hemoglobin Concent 34, Red Cell Distribution Width 14.7H, Platelet Count 240, Mean Platelet Volume 9.1, Neutrophils (%) (Auto) 61, Lymphocytes (%) (Auto) 28, Monocytes (%) (Auto) 9, Eosinophils (%) (Auto) 1, Basophils (%) (Auto) 0, Neutrophils # (Auto) 7.6, Lymphocytes # (Auto) 3.5, Monocytes # (Auto) 1.1H, Eosinophils # (Auto) 0.1, Basophils # (Auto) 0.1, Blood Gas Puncture Site LT RAD, Blood Gas Patient Temperature 98.0, Arterial Blood pH 7.25*L, Arterial Blood Partial Pressure CO2 32L, Arterial Blood Partial Pressure O2 218H, Arterial Blood HCO3 14*L, Arterial Blood Total CO2 14.5L, Arterial Blood Oxygen Saturation 99, Arterial Blood Base Excess -12.4L, Ridge Test YES-POS, Blood Gas Ventilator Setting YES, Blood Gas Inspired Oxygen 60, Triglycerides Level 103 A/P: Assessment/Dx: Postcardiopulmonary arrest. persistent atrial fibrillation, acute on chronic diastolic heart failure, Hyponatremia, Hypertension, Diabetes, Peripheral edema, Acute on chronic kidney injury, Positive troponin, Positive BNP Plan: Postcardiopulmonary arrest. Says the patient did not have telemetry did not show what the rhythm was. The EKG postcode shows atrial fibrillation with no ST-T wave abnormalities. 2 multiform PVCs are noted. She was intubated and ventilated. Unclear etiology of cardiopulmonary arrest. Could be pulmonary in nature as well. PE is also one of the differentials since the patient was not on oral anticoagulation. I had recommended oral anticoagulation earlier in the admission but the patient refused. Serial troponin. Stat echocardiogram. I will start IV amiodarone. If significant elevation of troponin, will consider coronary angiography. Otherwise mildly positive troponin are expected post CPR. Earlier in the admission Patient does not consent to oral anticoagulation therapy. I discussed at length about the risk of stroke however the patient does not want any bleeding. We will continue with rate control. acute on chronic diastolic heart failure, will give a dose of Lasix. Mild abnormal troponin. Although she does not have any significant chest pain but has mild shortness of breath. Lexiscan stress test done yesterday shows small anterior lateral reversible defect. Treat medically unless she has re current symptoms. Hyponatremia, deferred to Dr. Crane. Acute on chronic kidney injury, unclear etiology. Diabetic nephropathy as a differential. Critically ill patient, spent 35 minutes. Thank you for your consultation. Please call me if you have any questions. Giovani Chan MD, FACP, FACC, FSCAI, FHRS, CCDS Interventional Cardiology Cardiac Electrophysiology Vascular Medicine and Endovascular Interventions Leora CHAN MD Oct 22, 2018 3:28 pm
[2018-10-22 15:34] LABS: ABG BASE EXCESS -15.9 MMOL/L (-2.5-2.5); ABG OXYGEN SATURATION 97 % (94-100); ABG PCO2 30 MMHG (35-45); ABG PO2 99 MMHG (79-93); ABG TCO2 11.8 MMOL/L (21.0-31.0)
--- NOTE | 2018-10-22 15:34 | NUR ---
dr charles notified of consult.
[2018-10-22 15:36] LABS: ABG PH 7.18 (7.37-7.43); ALLENS TEST YES-POS; INSPIRED O2 60%; VENTILATOR YES
[2018-10-22] MEDS ORDERED: SODIUM BICARB 8.4% 50 MEQ/50 ML VIAL IV ONE ×2 (15:45→19:45)
[2018-10-22 16:08] LABS: BASOPHILS % (AUTO) 0 % (0-10); EOSINOPHILS # (AUTO) 0.1 10^3/uL (0.0-0.3); EOSINOPHILS % (AUTO) 0 % (0-10); HEMATOCRIT 40 % (35-52); HEMOGLOBIN 13.8 G/DL (11.5-16.0); LYMPHOCYTES # (AUTO) 0.7 X 10^3 (1.0-4.0); LYMPHOCYTES % (AUTO) 5 % (12-44); MEAN CORPUSCULAR HEMOGLOBIN 32 PG (25-34); MEAN CORPUSCULAR HGB CONC 35 G/DL (32-36); MEAN CORPUSCULAR VOLUME 93 FL (80-99); MONOCYTES # (AUTO) 0.7 X 10^3 (0.0-1.0); MONOCYTES % (AUTO) 5 % (0-12); NEUTROPHILS % (AUTO) 90 % (42-75); PLATELET COUNT 204 10^3/uL (130-400); RED CELL DISTRIBUTION WIDTH 14.4 % (10.0-14.5); WHITE BLOOD COUNT 14.5 10^3/uL (4.3-11.0)
--- NOTE | 2018-10-22 16:15 | NUR ---
DR FU HERE TO SEE PT.
[2018-10-22 16:24] LABS: ALBUMIN 2.5 GM/DL (3.2-4.5); BILIRUBIN,TOTAL 0.5 MG/DL (0.1-1.0); CALCIUM 6.8 MG/DL (8.5-10.1); CREATININE SERUM 1.84 MG/DL (0.60-1.30); MAGNESIUM 1.4 MG/DL (1.8-2.4); PHOSPHORUS 4.2 MG/DL (2.3-4.7); POTASSIUM 3.3 MMOL/L (3.6-5.0); TOTAL PROTEIN 4.5 GM/DL (6.4-8.2)
--- NOTE | 2018-10-22 16:24 | Pulmonary Consultation ---
History of Present Illness History of Present Illness Date of Consultation 10/22/18 16:17 Time Seen by Provider: 16:18 Date of Admission History of Present Illness 68yo with hx of medical noncompliance, DM, HTN, pt admitted on 10/19 for increased fatigue, weakness. Today I am being consulted after pt went into cardiac arrest. PT was being prepped for discharge and became bradycardic and hypotensive. Chest compressions were done and ACLS was delivered. PT intubated on 4th floor. She is currently in ICU on ventilator. Allergies and Home Medications Allergies Coded Allergies: No Known Drug Allergies (Verified , 12/29/08) Uncoded Allergies: "LITTLE BLUE PILL" (Allergy, Mild, 12/29/08) Home Medications Metoprolol Succinate 50 Mg Tab.er.24h, 50 MG PO DAILY Prescribed by: SHREE JEWELL on 10/22/18 1219 Past Urclwsc-Vohvbj-Tkojcn Hx Past Med/Social Hx: Reviewed Nursing Past Med/Soc Hx Patient Social History Alcohol Use: Denies Use Recreational Drug Use: No Smoking Status: Never a Smoker 2nd Hand Smoke Exposure: No Recent Foreign Travel: No Contact w/Someone Who Travel: No Recent Infectious Disease Expo: No Recent Hopitalizations: No Immunizations Up To Date Tetanus Booster (TDap): Unknown Date of Pneumonia Vaccine: Apr 11, 2012 Date of Influenza Vaccine: Feb 28, 2013 Seasonal Allergies Seasonal Allergies: Yes Past Medical History Surgeries: Yes Abdominal, Section, Orthopedic, Vascular Surgery Respiratory: Yes Pulmonary Embolism Currently Using CPAP: No Currently Using BIPAP: No Cardiac: Yes Atrial Fibrillation, Chronic Edema/Swelling, Heart Murmur, High Cholesterol, Hypertension, Peripheral Vascular Neurological: Yes Stroke, TIA Reproductive Disorders: Yes 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 Sexually Transmitted Disease: No HIV/AIDS: No Genitourinary: Yes Kidney Infection, Kidney Stones, Renal Failure, UTI-Chronic Gastrointestinal: Yes Gastroesophageal Reflux, Hemorrhoids, Gall Bladder Disease Musculoskeletal: Yes Arthritis Endocrine: Yes Diabetes, Non-Insulin dep HEENT: Yes Cataract, Macular Degeneration Loss of Vision: Bilateral Hearing Impairment: Denies Cancer: No Psychosocial: No Integumentary: Yes (YEAST RECURRENT ) Blood Disorders: No Adverse Reaction/Blood Tranf: No Family Medical History Reviewed Nursing Family Hx Cardiovascular disease 03 MOTHER (stroke) 19 FATHER Diabetes mellitus 19 FATHER Heart disease 19 FATHER Heart Disease, Diabetes, Hypertension Review of Systems Time Seen by Provider: 16:43 Sepsis Event Evaluation Height, Weight, BMI Height: 5'3.00" Weight: 201lbs. 1.0oz. 91.215589jf; 35.6 BMI Method:Stated Exam Exam Vital Signs Date Time Temp Pulse Resp B/P (MAP) Pulse Ox O2 Delivery O2 Flow Rate FiO2 10/22/18 15:00 45 15 67/56 (60) 95 Mechanical Ventilator 60.00 10/22/18 14:57 102 10/22/18 14:52 93/60 10/22/18 14:33 93 16 94 60 10/22/18 14:27 98.0 10/22/18 08:00 96 Room Air 10/22/18 08:00 97.3 63 18 111/70 (84) 97 Room Air 10/22/18 07:00 78 10/22/18 04:00 96.6 78 20 112/75 (87) 93 Room Air 10/22/18 01:00 76 10/22/18 00:00 97.3 86 22 133/76 (95) 93 Room Air 10/21/18 20:15 97.6 82 20 114/71 (85) 94 Room Air 10/21/18 20:00 96 Room Air 10/21/18 19:00 88 10/21/18 16:32 97.8 81 18 129/64 (85) 95 Room Air I & O 10/22/18 07:00 Intake Total 1450 ml Output Total 300 ml Balance 1150 ml Height & Weight Height: 5'3.00" Weight: 201lbs. 1.0oz. 91.514271nd; 35.6 BMI Method:Stated General Appearance: Chronically ill, Moderate Distress, Obese HEENT: Pharynx Normal Neck: Full Range of Motion, Normal Inspection, Non Tender, Supple Respiratory: Chest Non Tender, Lungs Clear, Normal Breath Sounds, No Accessory Muscle Use, No Respiratory Distress Cardiovascular: No Gallop, Systolic Murmur, Irregularly Irregular Capillary Refill: Less Than 3 Seconds Gastrointestinal: soft Extremity: Other (1-2+ bilateral peripheral edema to the mid tibia no ulceration or inflammatory change noted.) Neurologic/Psychiatric: Alert, Oriented x3, Normal Mood/Affect Skin: Warm/Dry Lymphatic: No Adenopathy Results Lab Laboratory Tests 10/21/18 04:20 10/22/18 11:20 10/22/18 14:20 10/22/18 16:00 Assessment/Plan Assessment/Plan S/p CODE BLUE with ROSC - Chest compressions were started after pt became bradycardic and RN could not feel pulse -PT was intubated on -Continue ventilator care -Sedation is currently off and pt is following commands so will not qualify for therapeutic hypothermia -Cardiology following Acute respiratory failure with hypoxia r/o PE -start hep gtt if ok with family -PT has been refusing anticoagulation however PE is very likely and we are unable to discuss with pt at this time. -Check Bilateral dopplers r/o DVT PVC's -PT is currently on Amio gtt Metabolic acidosis -Check LA -Give 2 more amps of Bicarb -IVF Hypokalemia, hypomag, hypocalcemia -replace CHF with EF 30-35% -Monitor Acute on chronic renal failure -IVF Hyponatremia Afib CAD DM Blindness Medical noncompliance DYANA FU DO Oct 22, 2018 16:24
[2018-10-22 16:28] LABS: BAND NEUTROPHILS 0 %; BASOPHILS % (MANUAL) 0 %; CRENATED RBC SLIGHT; EOSINOPHILS % (MANUAL) 1 %; LYMPHOCYTES % (MANUAL) 1 %; MONOCYTES % (MANUAL) 3 %; NEUTROPHILS % (MANUAL) 93 %; POIKILOCYTOSIS SLIGHT; REACTIVE LYMPHOCYTES 2 %; TOXIC GRANULATION/VACUOLAZATIO 1+
[2018-10-22] MEDS ORDERED: POTASSIUM CL 10MEQ/50ML IVPB 300 ML IV ONE (16:28)
[2018-10-22] MEDS ORDERED: MAGNESIUM 1 GM/100 ML IVPB 200 ML IV ONE (16:28)
[2018-10-22] MEDS ORDERED: CALCIUM GLUCONATE 10% INJ 4.65 MEQ in NS (IVPB) 50 ML IV ONE (16:30)
--- NOTE | 2018-10-22 16:44 | Diagnostic Imaging Report ---
INDICATION: Central line placement. TECHNIQUE: Frontal view of the chest COMPARISON: 2:10 PM on the same day FINDINGS: The endotracheal tube is approximately 2.5 cm from the omaira. The right jugular line tip projects over the upper SVC. There is stable cardiomegaly with central vascular congestion and mild interstitial edema. There are small bilateral pleural effusions. No pneumothorax is seen. An enteric tube crosses the [id number] IMPRESSION: 1. The right central line projects over the upper SVC. Cardiomegaly with central vascular congestion and mild interstitial edema. Small bilateral pleural effusions. Dictated by: Dictated on workstation # [id number]
[2018-10-22] MEDS ORDERED: HEParin 1000 UNIT/ML (10ML VIAL) FOR BOLUS IV SCH (16:45)
[2018-10-22] MEDS ORDERED: HEParin DRIP 25000 UNIT/500ML 500 ML IV SCH (16:45)
[2018-10-22 17:00] LABS: INR 1.3 (0.8-1.4); PROTHROMBIN TIME PATIENT 16.9 SEC (12.2-14.7)
[2018-10-22] MEDS: MAGNESIUM 1 GM/100 ML IVPB 100 ML IV SCH ×3 (17:01→17:40)
[2018-10-22] MEDS: POTASSIUM CL 10MEQ/50ML IVPB 50 ML IV SCH ×5 (17:02→19:30)
--- NOTE | 2018-10-22 17:10 | Consultation - Surgery ---
History of Present Illness History of Present Illness Patient Consulted On(jody/time) 10/22/18 17:02 Date Seen by Provider: Oct 22, 2018 Time Seen by Provider: 16:07 History of Present Illness consult requested by Dr. Jewell for central line placement Patient is a 68-year-old female who was being discharged today with history of chronic atrial fibrillation with patient refusing anticoagulation. Patient before being discharged turn blue and coded. Patient was intubated and has been transferred to the intensive care unit. Patient is currently requiring pressor support on Levophed. she does not have any central line access this time. Patient unable to provide any information. No family at bedside. Allergies and Home Medications Allergies Coded Allergies: No Known Drug Allergies (Verified , 12/29/08) Uncoded Allergies: "LITTLE BLUE PILL" (Allergy, Mild, 12/29/08) Home Medications Metoprolol Succinate 50 Mg Tab.er.24h, 50 MG PO DAILY Prescribed by: SHREE JEWELL on 10/22/18 1219 Patient Home Medication List Home Medication List Reviewed: Yes Past Mlpguim-Eouazz-Vpwgrq Hx Patient Social History Alcohol Use: Denies Use Recreational Drug Use: No Smoking Status: Never a Smoker 2nd Hand Smoke Exposure: No Recent Foreign Travel: No Contact w/Someone Who Travel: No Recent Infectious Disease Expo: No Recent Hopitalizations: No Physical Abuse Screen: No Sexual Abuse: No Immunizations Up To Date Tetanus Booster (TDap): Unknown Date of Pneumonia Vaccine: Apr 11, 2012 Date of Influenza Vaccine: Feb 28, 2013 Seasonal Allergies Seasonal Allergies: Yes Surgeries History of Surgeries: Yes Surgeries: Abdominal, Section, Orthopedic, Vascular Surgery Respiratory History of Respiratory Disorde: Yes Respiratory Disorders: Pulmonary Embolism Cardiovascular History of Cardiac Disorders: Yes Cardiac Disorders: Atrial Fibrillation, Chronic Edema/Swelling, Heart Murmur, High Cholesterol, Hypertension, Peripheral Vascular Neurological History of Neurological Disord: Yes Neurological Disorders: Stroke, TIA Reproductive System Hx Reproductive Disorders: Yes Sexually Transmitted Disease: No HIV/AIDS: No 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 Genitourinary History of Genitourinary Disor: Yes Genitourinary Disorders: Kidney Infection, Kidney Stones, Renal Failure, UTI- Chronic Gastrointestinal History of Gastrointestinal Di: Yes Gastrointestinal Disorders: Gastroesophageal Reflux, Hemorrhoids, Gall Bladder Disease Musculoskeletal History of Musculoskeletal Dis: Yes Musculoskeletal Disorders: Arthritis Endocrine History of Endocrine Disorders: Yes Endocrine Disorders: Diabetes, Non-Insulin dep HEENT History of HEENT Disorders: Yes HEENT Disorders: Cataract, Macular Degeneration Loss of Vision: Bilateral Hearing Impairment: Denies Cancer History of Cancer: No Psychosocial History of Psychiatric Problem: No Integumentary History of Skin or Integumenta: Yes (YEAST RECURRENT ) Blood Transfusions History of Blood Disorders: No Adverse Reaction to a Blood Tr: No Reviewed Nursing Assessment Reviewed/Agree w Nursing PMH: Yes Family Medical History Significant Family History: Heart Disease, Diabetes, Hypertension Family Medial History: Cardiovascular disease 03 MOTHER (stroke) 19 FATHER Diabetes mellitus 19 FATHER Heart disease 19 FATHER Review of Systems-General ROS-Unable to Obtain: patient intubated Physical Exam-General Problems Physical Exam Vital Signs Vital Signs - First Documented 10/19/18 10/22/18 10/22/18 07:24 14:33 15:00 Temp 96.2 Pulse 111 Resp 22 B/P (MAP) 141/102 (115) Pulse Ox 97 O2 Delivery Room Air O2 Flow Rate 60.00 FiO2 60 Capillary Refill : Less Than 3 Seconds General Appearance: other (intubated) HEENT: normal ENT inspection Neck: supple, normal inspection Respiratory: other (Intubated and equal chest rise) Cardiovascular: irregularly irregular Gastrointestinal: soft; No distended, No guarding Extremities: normal inspection Neurologic/Psychiatric: No alert, No normal mood/affect, No oriented x 3; other (intubated) Skin: warm/dry (erythematous changes and folds consistent with yeast) Lymphatic: no adenopathy Data Review Labs Laboratory Tests 10/22/18 11:20: Sodium Level 128L, Potassium Level 4.1, Chloride Level 103, Carbon Dioxide Level 12L, Anion Gap 13, Blood Urea Nitrogen 41H, Creatinine 1.96H, Estimat Glomerular Filtration Rate 25, BUN/Creatinine Ratio 21, Glucose Level 140H, Calcium Level 8.5 10/22/18 14:15: Troponin I 0.029H 10/22/18 14:20: White Blood Count 12.5H, Red Blood Count 4.57, Hemoglobin 14.5, Hematocrit 43, Mean Corpuscular Volume 94, Mean Corpuscular Hemoglobin 32, Mean Corpuscular He moglobin Concent 34, Red Cell Distribution Width 14.7H, Platelet Count 240, Mean Platelet Volume 9.1, Neutrophils (%) (Auto) 61, Lymphocytes (%) (Auto) 28, Monocytes (%) (Auto) 9, Eosinophils (%) (Auto) 1, Basophils (%) (Auto) 0, Neutr ophils # (Auto) 7.6, Lymphocytes # (Auto) 3.5, Monocytes # (Auto) 1.1H, Eosinophils # (Auto) 0.1, Basophils # (Auto) 0.1, Blood Gas Puncture Site LT RAD, Blood Gas Patient Temperature 98.0, Arterial Blood pH 7.25*L, Arterial Blood Partial Pressure CO2 32L, Arterial Blood Partial Pressure O2 218H, Arterial Blood HCO3 14*L, Arterial Blood Total CO2 14.5L, Arterial Blood Oxygen Saturation 99, Arterial Blood Base Excess -12.4L, Ridge Test YES-POS, Blood Gas Ventilator Setting YES, Blood Gas Inspired Oxygen 60, Triglycerides Level 103 10/22/18 15:20: Blood Gas Puncture Site LT RAD, Blood Gas Patient Temperature 98.0, Arterial Blood pH 7.18*L, Arterial Blood Partial Pressure CO2 30L, Arterial Blood Partial Pressure O2 99H, Arterial Blood HCO3 11*L, Arterial Blood Total CO2 11.8L, Arterial Blood Oxygen Saturation 97, Arterial Blood Base Excess -15.9L, Ridge Test YES-POS, Blood Gas Ventilator Setting YES, Blood Gas Inspired Oxygen 60% 10/22/18 16:00: White Blood Count 14.5H, Red Blood Count 4.30L, Hemoglobin 13.8, Hematocrit 40, Mean Corpuscular Volume 93, Mean Corpuscular Hemoglobin 32, Mean Corpuscular Hemoglobin Concent 35, Red Cell Distribution Width 14.4, Platelet Count 204, Mean Platelet Volume 9.0, Neutrophils (%) (Auto) 90H, Lymphocytes (%) (Auto) 5L, Monocytes (%) (Auto) 5, Eosinophils (%) (Auto) 0, Basophils (%) (Auto) 0, Neutrophils # (Auto) 13.0H, Lymphocytes # (Auto) 0.7L, Monocytes # (Auto) 0.7, Eosinophils # (Auto) 0.1, Basophils # (Auto) 0.0, Neutrophils % (Manual) 93, Lymphocytes % (Manual) 1, Monocytes % (Manual) 3, Eosinophils % (Manual) 1, Basophils % (Manual) 0, Band Neutrophils 0, Reactive Lymphocytes 2, Toxic Granulation 1+, Poikilocytosis SLIGHT, Crenated Cell SLIGHT, Sodium Level 134L, Potassium Level 3.3L, Chloride Level 107, Carbon Dioxide Level 15L, Anion Gap 12, Blood Urea Nitrogen 39H, Creatinine 1.84H, Estimat Glomerular Filtration Rate 27, BUN/Creatinine Ratio 21, Glucose Level 256H, Calcium Level 6.8L, Corrected Calcium 8.0L, Phosphorus Level 4.2, Magnesium Level 1.4L, Total Bilirubin 0.5, Aspartate Amino Transf (AST/SGOT) 46H, Alanine Aminotransferase (ALT/SGPT) 29, Alkaline Phosphatase 44, Total Protein 4.5L, Albumin 2.5L 10/22/18 16:05: Prothrombin Time 16.9H, INR Comment 1.3, Activated Partial Thromboplast Time 29 Assessment/Plan Assessment/Plan Assessment/Plan ATRIAL FIBRILLATION POST CODE HYPOTENSION CAD DIABETES MELLITUS BLINDNESS CHRONIC MEDICATION NON-COMPLIANCE patient has been intubated requiring only Levophed at this time. Central line placed emergently under ultrasound guidance right IJ Suspect embolic event with history of chronic A. fib with refusal of anticoagulation. No family present at this time. Clinical Quality Measures DVT/VTE Risk/Contraindication: Risk Factor Score Per Nursin RFS Level Per Nursing on Admit: 4+=Very High CHANDAN SHEA DO Oct 22, 2018 17:10
--- NOTE | 2018-10-22 17:20 | OPERATIVE REPORT ---
DATE OF SERVICE: 10/22/2018 PREOPERATIVE DIAGNOSIS: Post-code. POSTOPERATIVE DIAGNOSIS: Post-code. PROCEDURE: Right internal jugular ultrasound-guided central line placement. SURGEON: Chandan Mcdaniels DO ANESTHESIA: 1% lidocaine. ESTIMATED BLOOD LOSS: Minimal. COMPLICATIONS: None. INDICATIONS: The patient is a 68-year-old female who is being discharged today with AFib, had code right prior to being discharge and was transferred to the Intensive Care Unit. She is intubated and needing pressor support. The patient needing central line placed. DESCRIPTION OF PROCEDURE: The patient with emergent placement of central line placement. The right internal jugular vein was prepped and draped in sterile fashion. Ultrasound was used to visualize the right internal jugular vein. Local anesthetic was infiltrated around the area. The right internal jugular vein was then accessed under ultrasound guidance. Dark nonpulsatile blood was withdrawn. Wire was inserted through the needle and the needle was removed. A #11 blade scalpel was used to make an incision at the insertion point. A dilator was advanced and withdrawn over the wire. The triple lumen catheter was inserted over the wire and the wire was removed. All ports were accessed and flushed without difficulty. The catheter was then secured in the usual fashion. The area was then washed and dried and sterile bandage was applied. The patient tolerated the procedure well without any complications. Chest x-ray pending. Job ID: [id number] DocumentID: [id number] Dictated Date: 10/22/2018 16:16:04 Sweet Potato Disintegrator Date: 10/22/2018 17:19:56 Dictated By: CHANDAN MCDANIELS DO
[2018-10-22] MEDS: RT-ALBUTEROL/IPRATROPIUM 3 ML (DUONEB) VIAL INH SCH ×2 (18:28→22:00)
--- NOTE | 2018-10-22 18:54 | NUR ---
DR FU INFORMED OF POOR URINE OUTPUT AND DECREASED BP- NEW ORDERS RECEIVED TO GIVE ADDITIONAL IVF BOLUS.
[2018-10-22 19:02] LABS: ABG OXYGEN SATURATION 98 % (94-100); ABG PCO2 30 MMHG (35-45); ABG PO2 111 MMHG (79-93); ABG TCO2 12.6 MMOL/L (21.0-31.0)
[2018-10-22 19:05] LABS: ALLENS TEST YES-POS; INSPIRED O2 45%; PATIENT TEMP 96.4; VENTILATOR YES
[2018-10-22] MEDS ORDERED: VASOPRESSIN INJECTION 20 UNIT/ML VIAL ONE (19:13)
[2018-10-22] MEDS ORDERED: WATER (STERILE) FOR INJECTION 20 ML ONE (19:15)
--- NOTE | 2018-10-22 19:15 | NUR ---
PTS BP 40'S/20'S- DR FU NOTIFIED. NEW ORDERS RECEIVED TO START VASOPRESSIN AND GIVEN SOLU CORTEF. SEE EMAR FOR DETAILS.
[2018-10-22] MEDS: HYDROCORTISONE 100 MG/2 ML (Solu-CORTEF) VIAL IV SCH ×2 (19:21→22:07)
[2018-10-22] MEDS: VASOPRESSIN INJECTION 20 UNIT in NS (IVPB) 100 ML IV SCH (19:24)
[2018-10-22] MEDS ORDERED: D5 1/2 NS W/KCL 20 MEQ/L 1,000 ML IV ONE (19:37)
--- NOTE | 2018-10-22 19:37 | NUR ---
PTS PUPILS ARE NOW UNEQUAL AND NONREACTIVE, DR FU INFORMED.
[2018-10-22] MEDS ORDERED: SODIUM BICARBONATE IV SCH (19:45)
[2018-10-22] MEDS ORDERED: D5 IV SCH (19:45)
[2018-10-22] MEDS ORDERED: KCL IV SCH (19:45)
[2018-10-22] MEDS ORDERED: 1/2 NS IV SCH (19:45)
[2018-10-22] MEDS ORDERED: CALCIUM GLUC. 10% 4.65 MEQ/10 ML VIAL ONE ×2 (23:31→23:46)
[2018-10-22] MEDS ORDERED: ALBUMIN 5% 12.5 GM/250 ML 500 ML IV ONE (23:33)
[2018-10-22] MEDS ORDERED: NS (IVPB) 100 ML ONE (23:39)
[2018-10-23] VITALS (19 sets, daily range): BP systolic 72–161; BP diastolic 23–89
[2018-10-23] MEDS ORDERED: inSUlin ASPART (NovoLOG) 1 UNIT/0.01 ML (CHARGE PER UNIT) SQ SCH
[2018-10-23] MEDS ORDERED: INJECT IV SCH ×2 (00:15→08:30)
[2018-10-23] MEDS ORDERED: CALCIUM GLUCONATE 10% IV SCH ×2 (00:15→08:30)
[2018-10-23] MEDS ORDERED: NS IV SCH ×2 (00:15→08:30)
[2018-10-23] MEDS ORDERED: SODIUM BICARB 8.4% 50 MEQ/50 ML (ABBOTT) SYR IV ONE ×2 (00:30→02:45)
[2018-10-23] MEDS ORDERED: ALBUMIN 5% 12.5 GM/250 ML 250 ML IV SCH (00:30)
[2018-10-23 00:45] LABS: ABG OXYGEN SATURATION 99 % (94-100); ABG PCO2 25 MMHG (35-45); ABG PH 7.36 (7.37-7.43); ABG PO2 133 MMHG (79-93); ABG TCO2 14.4 MMOL/L (21.0-31.0)
[2018-10-23] MEDS: PROPOFOL DRIP (ICU) 100 ML IV SCH ×2 (00:49→09:12)
[2018-10-23 00:53] LABS: ALLENS TEST YES-POS; INSPIRED O2 100%; PATIENT TEMP 96.6; VENTILATOR YES
[2018-10-23 00:56] LABS: ALBUMIN 2.5 GM/DL (3.2-4.5); CALCIUM 8.8 MG/DL (8.5-10.1); CREATININE SERUM 2.16 MG/DL (0.60-1.30); MAGNESIUM 2.1 MG/DL (1.8-2.4); POTASSIUM 4.9 MMOL/L (3.6-5.0)
[2018-10-23] MEDS ORDERED: ALBUMIN 25% 25 GM/100 ML 200 ML IV ONE (01:12)
[2018-10-23] MEDS ORDERED: SODIUM BICARB 8.4% 50 MEQ/50 ML VIAL ONE ×3 (01:12→01:19)
[2018-10-23] MEDS ORDERED: 1/2 NS IV SOLUTION 1,000 ML IV ONE (01:22)
[2018-10-23] MEDS: AMIODARONE INJECTION 450 MG in D5W IV SOLUTION (EXCEL) 250 ML IV SCH (02:03)
[2018-10-23] MEDS: VASOPRESSIN INJECTION 20 UNIT in NS (IVPB) 100 ML IV SCH ×2 (02:03→09:13)
[2018-10-23] MEDS ORDERED: 1/2 NS IV SCH (02:45)
[2018-10-23] MEDS ORDERED: SODIUM BICARBONATE IV SCH (02:45)
[2018-10-23] MEDS: ALBUMIN 25% 25 GM/100 ML IV (PRE-MIX) IV SCH ×2 (03:00→03:17)
[2018-10-23 03:13] LABS: BASOPHILS % (AUTO) 0 % (0-10); EOSINOPHILS % (AUTO) 0 % (0-10); HEMATOCRIT 44 % (35-52); HEMOGLOBIN 14.9 G/DL (11.5-16.0); LYMPHOCYTES # (AUTO) 0.9 X 10^3 (1.0-4.0); LYMPHOCYTES % (AUTO) 4 % (12-44); MEAN CORPUSCULAR HEMOGLOBIN 32 PG (25-34); MEAN CORPUSCULAR HGB CONC 34 G/DL (32-36); MEAN CORPUSCULAR VOLUME 93 FL (80-99); MEAN PLATELET VOLUME 9.4 FL (7.4-10.4); MONOCYTES # (AUTO) 1.6 X 10^3 (0.0-1.0); MONOCYTES % (AUTO) 6 % (0-12); NEUTROPHILS # (AUTO) 22.5 X 10^3 (1.8-7.8); NEUTROPHILS % (AUTO) 90 % (42-75); PLATELET COUNT 224 10^3/uL (130-400); RED CELL DISTRIBUTION WIDTH 14.5 % (10.0-14.5); WHITE BLOOD COUNT 24.9 10^3/uL (4.3-11.0)
[2018-10-23] MEDS: NOREPINEPHRINE 4 MG in NS (IVPB) 250 ML IV SCH ×2 (03:18→04:49)
[2018-10-23 03:41] LABS: ALBUMIN 4.1 GM/DL (3.2-4.5); BILIRUBIN,TOTAL 1.1 MG/DL (0.1-1.0); CREATININE SERUM 2.27 MG/DL (0.60-1.30); MAGNESIUM 2.5 MG/DL (1.8-2.4); PHOSPHORUS 4.9 MG/DL (2.3-4.7); POTASSIUM 4.5 MMOL/L (3.6-5.0); TOTAL PROTEIN 5.7 GM/DL (6.4-8.2)
[2018-10-23] MEDS ORDERED: FUROSEMIDE 40 MG/4 ML INJ (LASIX) ONE (03:50)
[2018-10-23 03:55] LABS: ABG BASE EXCESS -11.1 MMOL/L (-2.5-2.5); ABG OXYGEN SATURATION 98 % (94-100); ABG PCO2 33 MMHG (35-45); ABG PO2 99 MMHG (79-93); ABG TCO2 15.6 MMOL/L (21.0-31.0)
[2018-10-23 03:59] LABS: ABG PH 7.27 (7.37-7.43); ALLENS TEST YES-POS; INSPIRED O2 65%
[2018-10-23 04:00] LABS: PATIENT TEMP 97.6; VENTILATOR YES
[2018-10-23] MEDS: inSUlin ASPART (NovoLOG) 1 UNIT/0.01 ML (CHARGE PER UNIT) SQ SCH ×3 (04:11→12:27)
[2018-10-23] MEDS ORDERED: FUROSEMIDE 40 MG/4 ML INJ (LASIX) IV ONE (05:00)
[2018-10-23] MEDS ORDERED: PIPERACILLIN/TAZOBACTAM (BULK) 4.5 GM in NS (IVPB) 100 ML IV SCH ×3 (05:45→13:00)
[2018-10-23] MEDS ORDERED: KCL 20 MEQ TAB (K-DUR) PO SCH (06:00)
[2018-10-23] MEDS ORDERED: POTASSIUM CL 10MEQ/50ML IVPB 50 ML IV SCH (06:00)
[2018-10-23] MEDS ORDERED: MAGNESIUM 1 GM/100 ML IVPB 100 ML IV SCH (06:00)
[2018-10-23] MEDS: HYDROCORTISONE 100 MG/2 ML (Solu-CORTEF) VIAL IV SCH ×2 (06:10→12:27)
[2018-10-23 06:20] LABS: BILIRUBIN,URINE NEGATIVE (NEGATIVE); CLARITY,URINE SLIGHTLY CLOUDY; COLOR,URINE YELLOW; GLUCOSE, URINE (UA) 1+ (NEGATIVE); KETONES,URINE NEGATIVE (NEGATIVE); LEUKOCYTE ESTERASE ,URINE 3+ (NEGATIVE); NITRITE,URINE NEGATIVE (NEGATIVE); PH,URINE 5 (5-9); PROTEIN,URINE 4+ (NEGATIVE); UROBILINOGEN,URINE 1 MG/DL (NORMAL)
[2018-10-23 06:29] LABS: BACTERIA,URINE LARGE /HPF; RBC,URINE >100 /HPF; SQUAMOUS EPITHELIAL CELL,UR 0-2 /HPF
[2018-10-23 06:30] LABS: GRANULAR CASTS,URINE 0-2 /LPF; WAXY CASTS,URINE RARE /LPF
[2018-10-23] MEDS ORDERED: LACTATED RINGERS 1,000 ML IV ONE ×2 (06:30)
[2018-10-23] MEDS ORDERED: SODIUM BICARBONATE 8.4% VIAL 150 MEQ in 1/2 NS IV SOLUTION 1,000 ML IV SCH (06:30)
--- NOTE | 2018-10-23 06:38 | Pulmonary Progress Note ---
Subjective Time Seen by a Provider: 06:47 Subjective/Events-last exam PT is sedated on vent currently. Sepsis Event Evaluation Height, Weight, BMI Height: 5'3.00" Weight: 201lbs. 1.0oz. 91.877383dg; 35.6 BMI Method:Stated Focused Exam Lactate Level 10/23/18 00:30: Lactic Acid Level 3.86*H 10/23/18 03:00: Lactic Acid Level 5.09*H 10/23/18 05:40: Lactic Acid Level 6.28*H Lactic Acid Level Laboratory Tests Test 10/23/18 03:00 10/23/18 05:40 Lactic Acid Level 5.09 MMOL/L (0.50-2.00) *H 6.28 MMOL/L (0.50-2.00) *H Exam Exam Vital Signs Date Time Temp Pulse Resp B/P (MAP) Pulse Ox O2 Delivery O2 Flow Rate FiO2 10/23/18 05:15 125 31 125/65 (85) 100 Mechanical Ventilator 55.00 10/23/18 05:00 137 31 122/37 (65) 100 Mechanical Ventilator 55.00 10/23/18 04:00 129 29 100 55 10/23/18 04:00 Mechanical Ventilator 65 10/23/18 04:00 121 24 140/60 (86) 100 Mechanical Ventilator 55.00 10/23/18 03:00 128 21 134/72 (92) 100 Mechanical Ventilator 65.00 10/23/18 02:30 129 31 144/89 (107) 100 Mechanical Ventilator 65.00 10/23/18 02:05 108 35 99 Mechanical Ventilator 65.00 10/23/18 02:00 121 36 138/23 (61) 100 Mechanical Ventilator 70.00 10/23/18 02:00 117 24 100 65 10/23/18 01:16 118 23 161/49 (86) 100 Mechanical Ventilator 70.00 10/23/18 01:00 128 10/23/18 01:00 128 20 159/40 (79) 97 Mechanical Ventilator 75.00 10/23/18 00:15 121 29 120/38 (65) 100 Mechanical Ventilator 75.00 10/23/18 00:00 96.6 10/23/18 00:00 Mechanical Ventilator 75 10/22/18 23:00 111 18 112/26 (54) 100 Mechanical Ventilator 75.00 10/22/18 22:18 111 30 113/57 (75) 100 Mechanical Ventilator 75.00 10/22/18 22:02 115 26 128/40 (69) Mechanical Ventilator 80.00 10/22/18 22:00 101 24 100 75 10/22/18 21:00 114 19 130/51 (77) 99 Mechanical Ventilator 80.00 10/22/18 21:00 Mechanical Ventilator 80.00 10/22/18 20:10 73 18 92 100 10/22/18 20:00 96.3 10/22/18 20:00 Mechanical Ventilator 100 10/22/18 20:00 75 38 110/31 (57) 91 Mechanical Ventilator 100.00 10/22/18 19:00 62 10/22/18 19:00 62 16 81/48 (59) 93 Mechanical Ventilator 100.00 10/22/18 18:28 57 16 95 45 10/22/18 18:00 96 15 201/89 (126) 91 Mechanical Ventilator 45.00 10/22/18 17:00 54 16 99/29 (52) 98 Mechanical Ventilator 45.00 10/22/18 16:58 55 17 98 45 10/22/18 16:26 96.8 10/22/18 16:00 96.6 10/22/18 16:00 Mechanical Ventilator 45 10/22/18 16:00 63 24 132/35 (67) 93 Mechanical Ventilator 60.00 10/22/18 15:00 45 15 67/56 (60) 95 Mechanical Ventilator 60.00 10/22/18 14:57 102 10/22/18 14:52 93/60 10/22/18 14:33 93 16 94 60 10/22/18 14:27 98.0 10/22/18 08:00 96 Room Air 10/22/18 08:00 97.3 63 18 111/70 (84) 97 Room Air 10/22/18 07:00 78 I & O 10/23/18 07:00 Intake Total 7614 ml Output Total 125 ml Balance 7489 ml Height & Weight Height: 5'3.00" Weight: 201lbs. 1.0oz. 91.245793cs; 35.6 BMI Method:Stated General Appearance: Chronically ill, Moderate Distress, Obese, Other (sedated on vent ) HEENT: Pharynx Normal, Other (ET tube in place ) Neck: Supple Respiratory: Decreased Breath Sounds Cardiovascular: No Gallop, Systolic Murmur, Irregularly Irregular Capillary Refill: Greater Than 3 Seconds Gastrointestinal: soft; No distended, No guarding Extremity: Pedal Edema Neurologic/Psychiatric: Other (sedated on vent ) Skin: Warm/Dry Lymphatic: No Adenopathy Results Lab Laboratory Tests 10/22/18 11:20 10/22/18 14:20 10/22/18 16:00 10/23/18 00:30 10/23/18 03:00 Assessment/Plan Assessment/Plan S/p CODE BLUE with ROSC - Chest compressions were started after pt became bradycardic and RN could not feel pulse -Continue ventilator care -Diprivan -Cardiology following Acute respiratory failure with hypoxia r/o PE - hep gtt for suspected PE -Check Bilateral dopplers r/o DVT PVC's - Amio gtt per cardiology Severe sepsis with sepitic shock -Phelan cultures -Will not do 30cc/kg of IVF secondary to pt already receiving a lot of IVF, CHF, and worsening pulmonary edema. -Continue Hep gtt -Phelan culture -Solucortef -Add zyvox and Merrem for now -Currently on Vasopressin and Levophed Metabolic acidosis- worsening -Give a liter bolus to LR -Continue BiCarb gtt -Give 2 more amps of Bicarb -IVF Acute on chronic renal failure -IVF -Check abdominal US Shock liver -Monitor CHF with EF 30-35% -Monitor Hyperphos, mag -repeat labs at 11 Afib hx CAD DM -SSI -Change Accu checks to Q 4 -may need to take D5 out of IVF Blindness Medical noncompliance Overall poor prognosis will continue supportive measures and continue to monitor. Consult hospice for education. DYANA FU DO Oct 23, 2018 06:38
[2018-10-23] MEDS: RT-ALBUTEROL/IPRATROPIUM 3 ML (DUONEB) VIAL INH SCH ×3 (06:49→14:11)
[2018-10-23] MEDS ORDERED: PIPERACILLIN/TAZO 4.5 GM/NS 100 ML IV NR ×2 (07:00)
--- NOTE | 2018-10-23 08:18 | Physical Therapy Progress Note ---
Therapy Progress Note Patient is currently sedated and on mechanical ventilator. PT to assess when medically stable and able to actively participate. ANNIKA ALEMAN PT Oct 23, 2018 08:18
--- NOTE | 2018-10-23 08:28 | Progress Note ---
Subjective Date Seen by a Provider: Oct 23, 2018 Time Seen by a Provider: 08:10 Focused Exam Lactate Level 10/23/18 00:30: Lactic Acid Level 3.86*H 10/23/18 03:00: Lactic Acid Level 5.09*H 10/23/18 05:40: Lactic Acid Level 6.28*H Lactic Acid Level Laboratory Tests Test 10/23/18 05:40 Lactic Acid Level 6.28 MMOL/L (0.50-2.00) *H Objective Exam Last Set of Vital Signs Vital Signs Date Time Temp Pulse Resp B/P (MAP) Pulse Ox O2 Delivery O2 Flow Rate FiO2 10/23/18 06:50 121 29 100 55 10/23/18 06:00 119/47 (71) Mechanical Ventilator 55.00 10/23/18 00:00 96.6 Capillary Refill : Greater Than 3 Seconds I&O Intake and Output 10/22/18 23:59 Intake Total 5264 ml Output Total 210 ml Balance 5054 ml Intake Oral 350 ml IV Total 4914 ml Output Urine Total 160 ml Oral Regurgitation 50 ml # Voids 3 # Urine Diapers 1 General: Alert, Oriented X3, Cooperative HEENT: Atraumatic Neck: Supple Lungs: Clear to Auscultation, Normal Air Movement Heart: Other (TACHYCARDIA) Abdomen: Normal Bowel Sounds, Soft, No Tenderness Extremities: Other (EDEMA TO LOWER LEGS FROM FEET TO LOWER THIGHS) Skin: No Rashes, No Breakdown Neuro: Cranial Nerves 3-12 NL Psych/Mental Status: Mental Status NL, Mood NL Results Lab Laboratory Tests 10/22/18 11:20: Sodium Level 128L, Potassium Level 4.1, Chloride Level 103, Carbon Dioxide Level 12L, Anion Gap 13, Blood Urea Nitrogen 41H, Creatinine 1.96H, Estimat Glomerular Filtration Rate 25, BUN/Creatinine Ratio 21, Glucose Level 140H, Calcium Level 8.5 10/22/18 14:15: Troponin I 0.029H 10/22/18 14:20: White Blood Count 12.5H, Red Blood Count 4.57, Hemoglobin 14.5, Hematocrit 43, Mean Corpuscular Volume 94, Mean Corpuscular Hemoglobin 32, Mean Corpuscular Hemoglobin Concent 34, Red Cell Distribution Width 14.7H, Platelet Count 240, Mean Platelet Volume 9.1, Neutrophils (%) (Auto) 61, Lymphocytes (%) (Auto) 28, Monocytes (%) (Auto) 9, Eosinophils (%) (Auto) 1, Basophils (%) (Auto) 0, Neutrophils # (Auto) 7.6, Lymphocytes # (Auto) 3.5, Monocytes # (Auto) 1.1H, Eosinophils # (Auto) 0.1, Basophils # (Auto) 0.1, Blood Gas Puncture Site LT RAD, Blood Gas Patient Temperature 98.0, Arterial Blood pH 7.25*L, Arterial Blood Partial Pressure CO2 32L, Arterial Blood Partial Pressure O2 218H, Arterial Blood HCO3 14*L, Arterial Blood Total CO2 14.5L, Arterial Blood Oxygen Saturation 99, Arterial Blood Base Excess -12.4L, Ridge Test YES-POS, Blood Gas Ventilator Setting YES, Blood Gas Inspired Oxygen 60, Triglycerides Level 103 10/22/18 15:20: Blood Gas Puncture Site LT RAD, Blood Gas Patient Temperature 98.0, Arterial Blood pH 7.18*L, Arterial Blood Partial Pressure CO2 30L, Arterial Blood Partial Pressure O2 99H, Arterial Blood HCO3 11*L, Arterial Blood Total CO2 11.8L, Arterial Blood Oxygen Saturation 97, Arterial Blood Base Excess -15.9L, Ridge Test YES-POS, Blood Gas Ventilator Setting YES, Blood Gas Inspired Oxygen 60% 10/22/18 16:00: White Blood Count 14.5H, Red Blood Count 4.30L, Hemoglobin 13.8, Hematocrit 40, Mean Corpuscular Volume 93, Mean Corpuscular Hemoglobin 32, Mean Corpuscular Hemoglobin Concent 35, Red Cell Distribution Width 14.4, Platelet Count 204, Mean Platelet Volume 9.0, Neutrophils (%) (Auto) 90H, Lymphocytes (%) (Auto) 5L, Monocytes (%) (Auto) 5, Eosinophils (%) (Auto) 0, Basophils (%) (Auto) 0, Neutrophils # (Auto) 13.0H, Lymphocytes # (Auto) 0.7L, Monocytes # (Auto) 0.7, Eosinophils # (Auto) 0.1, Basophils # (Auto) 0.0, Neutrophils % (Manual) 93, Lymphocytes % (Manual) 1, Monocytes % (Manual) 3, Eosinophils % (Manual) 1, Basophils % (Manual) 0, Band Neutrophils 0, Reactive Lymphocytes 2, Toxic Granulation 1+, Poikilocytosis SLIGHT, Crenated Cell SLIGHT, Sodium Level 134L, Potassium Level 3.3L, Chloride Level 107, Carbon Dioxide Level 15L, Anion Gap 12, Blood Urea Nitrogen 39H, Creatinine 1.84H, Estimat Glomerular Filtration Rate 27, BUN/Creatinine Ratio 21, Glucose Level 256H, Calcium Level 6.8L, Corrected Calcium 8.0L, Phosphorus Level 4.2, Magnesium Level 1.4L, Total Bilirubin 0.5, Aspartate Amino Transf (AST/SGOT) 46H, Alanine Aminotransferase (ALT/SGPT) 29, Alkaline Phosphatase 44, Total Protein 4.5L, Albumin 2.5L 10/22/18 16:05: Prothrombin Time 16.9H, INR Comment 1.3, Activated Partial Thromboplast Time 29 10/22/18 16:48: Blood Gas Puncture Site LT RAD, Blood Gas Patient Temperature 96.4, Arterial Blood pH 7.20*L, Arterial Blood Partial Pressure CO2 30L, Arterial Blood Partial Pressure O2 111H, Arterial Blood HCO3 12*L, Arterial Blood Total CO2 12.6L, Arterial Blood Oxygen Saturation 98, Arterial Blood Base Excess -15.0L, Ridge Test YES-POS, Blood Gas Ventilator Setting YES, Blood Gas Inspired Oxygen 45% 10/22/18 17:00: Lactic Acid Level 1.21 10/22/18 17:25: Glucometer 189H 10/22/18 21:05: Activated Partial Thromboplast Time > 200*H 10/23/18 00:16: Glucometer 270H 10/23/18 00:30: Hemoglobin 15.9, Sodium Level 135, Potassium Level 4.9, Chloride Level 105, Carbon Dioxide Level 14L, Anion Gap 16H, Blood Urea Nitrogen 39H, Creatinine 2. 16H, Estimat Glomerular Filtration Rate 23, BUN/Creatinine Ratio 18, Glucose Level 435*H, Lactic Acid Level 3.86*H, Calcium Level 8.8, Magnesium Level 2.1, Troponin I 0.315*H, Albumin 2.5L 10/23/18 00:35: Blood Gas Puncture Site RT RADIAL, Blood Gas Patient Temperature 96.6, Arterial Blood pH 7.36L, Arterial Blood Partial Pressure CO2 25L, Arterial Blood Partial Pressure O2 133H, Arterial Blood HCO3 14*L, Arterial Blood Total CO2 14.4L, Arterial Blood Oxygen Saturation 99, Arterial Blood Base Excess -11.0L, Ridge Test YES-POS, Blood Gas Ventilator Setting YES, Blood Gas Inspired Oxygen 100% 10/23/18 03:00: White Blood Count 24.9H, Red Blood Count 4.70, Hemoglobin 14.9, Hematocrit 44, Mean Corpuscular Volume 93, Mean Corpuscular Hemoglobin 32, Mean Corpuscular Hemoglobin Concent 34, Red Cell Distribution Width 14.5, Platelet Count 224, Mean Platelet Volume 9.4, Neutrophils (%) (Auto) 90H, Lymphocytes (%) (Auto) 4L, Monocytes (%) (Auto) 6, Eosinophils (%) (Auto) 0, Basophils (%) (Auto) 0, Neutrophils # (Auto) 22.5H, Lymphocytes # (Auto) 0.9L, Monocytes # (Auto) 1.6H, Eosinophils # (Auto) 0.0, Basophils # (Auto) 0.0, Activated Partial Thromboplast Time > 200*H, Sodium Level 137, Potassium Level 4.5, Chloride Level 104, Carbon Dioxide Level 14L, Anion Gap 19H, Blood Urea Nitrogen 39H, Creatinine 2.27H, Estimat Glomerular Filtration Rate 21, BUN/Creatinine Ratio 17, Glucose Level 380H, Lactic Acid Level 5.09*H, Calcium Level 8.0L, Corrected Calcium 7.9L, Phosphorus Level 4.9H, Magnesium Level 2.5H, Total Bilirubin 1.1H, Aspartate Amino Transf (AST/SGOT) 199H, Alanine Aminotransferase (ALT/SGPT) 219H, Alkaline Phosphatase 46, Troponin I 0.468*H, Total Protein 5.7L, Albumin 4.1 10/23/18 03:50: Blood Gas Puncture Site RIGHT RADIAL, Blood Gas Patient Temperature 97.6, Arterial Blood pH 7.27*L, Arterial Blood Partial Pressure CO2 33L, Arterial Blood Partial Pressure O2 99H, Arterial Blood HCO3 15*L, Arterial Blood Total CO2 15.6L, Arterial Blood Oxygen Saturation 98, Arterial Blood Base Excess - 11.1L, Ridge Test YES-POS, Blood Gas Ventilator Setting YES, Blood Gas Inspired Oxygen 65% 10/23/18 05:40: Lactic Acid Level 6.28*H 10/23/18 06:00: Urine Color YELLOW, Urine Clarity SLIGHTLY CLOUDY, Urine pH 5, Urine Specific [place] 1.025H, Urine Protein 4+, Urine Glucose (UA) 1+H, Urine Ketones NEGATIVE, Urine Nitrite NEGATIVE, Urine Bilirubin NEGATIVE, Urine Urobilinogen 1, Urine Leukocyte Esterase 3+H, Urine RBC (Auto) 5+H, Urine RBC >100H, Urine WBC 10-25H, Urine Squamous Epithelial Cells 0-2, Urine Crystals NONE, Urine Bacteria LARGEH, Urine Casts PRESENT, Urine Granular Casts 0-2H, Urine Waxy Casts RAREH, Urine Mucus SMALLH, Urine Culture Indicated YES Assessment/Plan Assessment/Plan Assess & Plan/Chief Complaint STATUS POST CODE BLUE MULTI-SYSTEM ORGAN FAILURE HYPONATREMIA PERIPHERAL EDEMA HYPERTENSION ATRIAL FIBRILLATION CAD DIABETES MELLITUS BLINDNESS CHRONIC MEDICATION NON-COMPLIANCE STATUS POST CODE BLUE WITH PT NOW INTUBATED AND WITH MULTI-SYSTEM ORGAN FAILURE - HYPONATREMIA - . PERIPHERAL EDEMA - COMPRESSION OF LOWER EXTREMITIES WITH SCD'S AFIB - RATE CONTROLLED - PT IS REFUSING ANTICOAGULATION PRIOR TO CODE BLUE STATUS - DEFER TO CARDIOLOGY CAD - SUPPORTIVE CARE DIABETES MELLITUS - PT ON ICU PROTOCOL AT THIS TIME BLINDNESS - SUPPORTIVE CARE. CHRONIC MEDICATION NON-COMPLIANCE WILL DISCUSS HOSPICE WITH THE SON Clinical Quality Measures Admission Status Admission Dx HYPONATREMIA PERIPHERAL EDEMA HYPERTENSION ATRIAL FIBRILLATION CAD DIABETES MELLITUS BLINDNESS CHRONIC MEDICATION NON-COMPLIANCE DVT/VTE Risk/Contraindication: Risk Factor Score Per Nursin RFS Level Per Nursing on Admit: 4+=Very High CAITY ROSA MD Oct 23, 2018 08:28
--- NOTE | 2018-10-23 08:33 | Occ Therapy Progress Note ---
Therapy Progress Note Pt. currently on mechanical ventilator. Pt. is sedated. OT will continue to follow and evaluate when medically stable. [id number] CAROLYN LOPEZ OT Oct 23, 2018 08:33
[2018-10-23] MEDS ORDERED: LINEZOLID IVPB 300 ML IV SCH (09:00)
[2018-10-23] MEDS: meTOprolol TARTRATE 50 MG (LOPRESSOR) TAB PO SCH (09:11)
[2018-10-23] MEDS: NOREPINEPHRINE 8 MG in NS (IVPB) 250 ML IV SCH ×2 (09:12→10:39)
--- NOTE | 2018-10-23 09:23 | Diagnostic Imaging Report ---
EXAMINATION: Chest radiograph, portable AP view. DATE: October 23, 2018 at 0324 hours. INDICATION: 68-year-old female, intubation. COMPARISON: October 22, 2018. FINDINGS: The endotracheal tube is approximately 3 cm above the omaira. The right internal jugular central venous line overlies the mid SVC. There are wires and leads overlying the patient which do limit the exam. There does appear to be mediastinal widening. Overall appearance of the cardiomediastinal silhouette is unchanged since comparison exam. There is no identified large pneumothorax. There is multifocal consolidation in the lungs bilaterally with increased airspace consolidation in the right upper lobe. There is interval increase in blunting of the right lateral costophrenic angle and opacities along the right peripheral lung margin. IMPRESSION: 1. Multifocal bilateral lung consolidation with increased airspace consolidation in the right upper lobe. 2. Probable right-sided pleural effusion which is likely increased in size since comparison exam. 3. Potential left pleural effusion with grossly unchanged appearance of the left hemithorax. 4. Support lines and tubes as above. 5. Unchanged appearance of the cardiomediastinal silhouette with apparent mediastinal widening. Dictated by: Dictated on workstation # [id number]
--- NOTE | 2018-10-23 10:00 | Diagnostic Imaging Report ---
PROCEDURE: US Venous Lower Ext Geovany. TECHNIQUE: Multiple real-time grayscale images were obtained over the lower extremities in various projections, bilaterally. Additional duplex Doppler and color Doppler images were also obtained. INDICATION: Liver and renal failure and atrial fibrillation. FINDINGS: The study is significantly compromised due to edema in both legs. Both common femoral veins appear to be widely patent. There is partial thrombus identified in the upper portion of the right superficial femoral vein. The upper left femoral vein appears patent. The mid and lower femoral veins on both sides are very difficult to visualize due to edema. Bilateral popliteal veins are patent. No fluid collection is seen. IMPRESSION: Partially occlusive DVT in the upper portion of the right superficial femoral vein. Study is significantly compromised due to subcutaneous edema. Dictated by: Dictated on workstation # [id number]
--- NOTE | 2018-10-23 10:25 | NUR ---
Palliative Care RN had seen Dr. Crane in the stoll today and she talked to me about this patient. Patient was set for discharge yesterday when she CODED requiring intubation. This morning Dr. Crane talked to the family about hospice in the hospital ([facility]) daughter is not handling this information well. Son is more receptive. There are friends in the room as well as the Checkroom Chief. I offered my support and spoke to them about her chances of recovery with the multi-system organ failure. On life-long friend suggests the "God cannot be finished with her yet because we need her", then she realized that this might be a selfish though process. Left my card and explained that I would be in and out checking on her and to answer any questions.
--- NOTE | 2018-10-23 11:33 | NUR ---
Pastoral care visit w/pts son and daughter, son updated me on pts situation and shared that they are still absorbing and processing the situation. I offered support and listening. The family [employer] is also following with them. Son appears to be processing toward acceptance of situation.
--- NOTE | 2018-10-23 11:39 | NUR ---
PALLIATIVE CARE RN just received from son Rui called to ask how to go about getting the patient on Comfort care. I questioned him on their desire to proceed with this and he confirmed. Explained that I would call the doctor for the orders and also confirmed that he understood what all would happen, including extubation and all the life support medications. He agreed with this and expressed that he would prefer this to take place as soon as possible. I have spoken with Dr. Crane's office and have informed the ICU nurse, Rianna.
[2018-10-23] MEDS ORDERED: LORazepam INJ 2 MG/ML (ATIVAN) VIAL IVP PRN (12:00)
[2018-10-23] MEDS ORDERED: BISACODYL 10 MG SUPP (DULCOLAX) PR PRN (12:00)
[2018-10-23] MEDS ORDERED: ACETAMINOPHEN 650 MG SUPP (TYLENOL) PR PRN (12:00)
[2018-10-23] MEDS ORDERED: morphine INJ 4 MG/ML 1 ML (VIAL/SYRINGE) IV PRN (12:00)
[2018-10-23] MEDS ORDERED: SALIVA STIMULANT MOUTH SPRAY (BIOTENE) 1.5 OZ MM PRN (12:00)
[2018-10-23] MEDS ORDERED: ONDANSETRON 4 MG/2 ML (SDV) Z0FRAN IVP PRN (12:00)
[2018-10-23] MEDS ORDERED: GLYCOPYRROLATE 0.2 MG/ML (ROBINUL) 2 ML VIAL IV PRN (12:00)
[2018-10-23] MEDS ORDERED: ARTIFICAL TEARS 0.4 ML UNIT DOSE (REFRESH PLUS) OU PRN (12:00)
[2018-10-23] MEDS ORDERED: PROMETHAZINE INJ 25 MG/ML (PHENERGAN) AMP IVP PRN (12:00)
[2018-10-23] MEDS ORDERED: RT-ALBUTEROL/IPRATROPIUM 3 ML (DUONEB) VIAL INH PRN (12:00)
--- NOTE | 2018-10-23 12:20 | NUR ---
Pt extubated per Dr. Crane orders and family requests at this time. Pt made comfort care during this time. IV infusions stopped. Daughter and son at bedside at this time. [place] called also during this time. Pt appears comfortable, no distress noted. Will continue to monitor and provide support for family during this time.
--- NOTE | 2018-10-23 12:33 | NUR ---
KIET Waters and this RN verified cessation of respirations and cardiac time of noted at this time. [facility] called. Pt ruled out for tissue and eye donations due to sepsis dx. Rhsy Hunter at bedside at this time to assist family with decisions. Will continue to monitor.
--- NOTE | 2018-10-23 12:40 | NUR ---
[facility] referal number [id number]. Pt declined for tissue and eye donation due to sepsis dx.
--- NOTE | 2018-10-23 12:54 | NUR ---
Dr. Crane, Dr. Zuñiga, and Dr. Chan notified of pts time of . Will notify home once family is done visiting with pt.
--- NOTE | 2018-10-23 14:12 | NUR ---
[place] [facility] notified per family requests at this time. Pt currently awaiting transportation.
[2018-10-23] MEDS ORDERED: SODIUM BICARB 8.4% 50 MEQ/50 ML VIAL IV ONE (14:54)
--- NOTE | 2018-10-23 14:55 | NUR ---
[facility] here to take pt to [facility] at this time. Pt released to [facility] at this time. Personal belongings with family at this time.
--- NOTE | 2018-10-23 16:44 | Cardiology Progress Note ---
Cardiology SOAP Progress Note Subjective: Intubated/ventilated Objective: I&O/Vital Signs 10/23/18 10/23/18 10/23/18 10/23/18 05:00 05:15 06:00 06:50 Pulse 137 125 117 121 Resp 31 31 28 29 B/P (MAP) 122/37 (65) 125/65 (85) 119/47 (71) Pulse Ox 100 100 99 100 O2 Delivery Mechanical Ventilator Mechanical Ventilator Mechanical Ventilator O2 Flow Rate 55.00 55.00 55.00 FiO2 55 10/23/18 10/23/18 10/23/18 10/23/18 07:00 07:00 08:00 08:00 Pulse 115 115 131 Resp 31 40 B/P (MAP) 96/54 (68) 132/76 (94) Pulse Ox 100 100 O2 Delivery Mechanical Ventilator Mechanical Ventilator Mechanical Ventilator O2 Flow Rate 55.00 55.00 FiO2 98 10/23/18 10/23/18 10/23/18 10/23/18 08:24 09:00 09:12 10:00 Pulse 134 130 130 120 Resp 34 31 29 B/P (MAP) 134/35 (68) 106/67 (80) Pulse Ox 100 100 95 O2 Delivery Mechanical Ventilator Mechanical Ventilator O2 Flow Rate 55.00 55.00 FiO2 40 10/23/18 10/23/18 10/23/18 10/23/18 10:28 11:00 12:00 12:00 Temp 98.3 Pulse 124 122 137 Resp 30 30 32 B/P (MAP) 118/75 (89) 158/44 (82) Pulse Ox 100 98 100 O2 Delivery Mechanical Ventilator Mechanical Ventilator O2 Flow Rate 55.00 55.00 FiO2 40 10/23/18 00:00 Intake Total 5214 ml Output Total 110 ml Balance 5104 ml Weight (Pounds): 242 Weight (Ounces): 1.0 Weight (Calculated Kilograms): 109.119154 Constitutional: appears stated age; No apparent distress; well-developed, well- nourished, other (intubated/ventilated) Respiratory: chest is bilaterally symmetric, lungs clear to auscultation, other (intubated/ventilated) Cardiovascular: irregularly irregular, S1 and S2 Gastrointestional: No tender, No soft, No round, No distended, No pulsatile mass, No organomegaly, No guarding, No rebound, No tenderness, No hernia, No mass, No audible bowel sounds, No abnormal bowel sounds, No abdominal bruits, No spleenomegaly, No other Extremities: No normal range of motion, No non-tender, No normal inspection, No pedal edema, No calf tenderness, No normal capillary refill, No pelvis stable, No calf tenderness, No inflammation, No pedal edema, No slow capillary refill, No swelling, No other, No abrasion, No clubbing, No cyanosis, No ecchymosis, No laceration, No no lower extremity edema bilateral, No significant edema, No tenderness, No wound Neurologic/Psychiatric: other (intubated/ventilated.) Skin: No rash, No ulcerations Results/Procedures: Labs Laboratory Tests 10/22/18 16:48: Blood Gas Puncture Site LT RAD, Blood Gas Patient Temperature 96.4, Arterial Blood pH 7.20*L, Arterial Blood Partial Pressure CO2 30L, Arterial Blood Partial Pressure O2 111H, Arterial Blood HCO3 12*L, Arterial Blood Total CO2 12.6L, Arterial Blood Oxygen Saturation 98, Arterial Blood Base Excess -15.0L, Ridge Test YES-POS, Blood Gas Ventilator Setting YES, Blood Gas Inspired Oxygen 45% 10/22/18 17:00: Lactic Acid Level 1.21 10/22/18 17:25: Glucometer 189H 10/22/18 21:05: Activated Partial Thromboplast Time > 200*H 10/23/18 00:16: Glucometer 270H 10/23/18 00:30: Hemoglobin 15.9, Sodium Level 135, Potassium Level 4.9, Chloride Level 105, Carbon Dioxide Level 14L, Anion Gap 16H, Blood Urea Nitrogen 39H, Creatinine 2.16H, Estimat Glomerular Filtration Rate 23, BUN/Creatinine Ratio 18, Glucose Level 435*H, Lactic Acid Level 3.86*H, Calcium Level 8.8, Magnesium Level 2.1, Troponin I 0.315*H, Albumin 2.5L 10/23/18 00:35: Blood Gas Puncture Site RT RADIAL, Blood Gas Patient Temperature 96.6, Arterial Blood pH 7.36L, Arterial Blood Partial Pressure CO2 25L, Arterial Blood Partial Pressure O2 133H, Arterial Blood HCO3 14*L, Arterial Blood Total CO2 14.4L, Arterial Blood Oxygen Saturation 99, Arterial Blood Base Excess -11.0L, Ridge Test YES-POS, Blood Gas Ventilator Setting YES, Blood Gas Inspired Oxygen 100% 10/23/18 03:00: Hemoglobin 14.9, Sodium Level 137, Potassium Level 4.5, Chloride Level 104, Carbon Dioxide Level 14L, Anion Gap 19H, Blood Urea Nitrogen 39H, Creatinine 2.27H, Estimat Glomerular Filtration Rate 21, BUN/Creatinine Ratio 17, Glucose Level 380H, Lactic Acid Level 5.09*H, Calcium Level 8.0L, Magnesium Level 2.5H, Troponin I 0.468*H, Albumin 4.1, White Blood Count 24.9H, Red Blood Count 4.70, Hematocrit 44, Mean Corpuscular Volume 93, Mean Corpuscular Hemoglobin 32, Mean Corpuscular Hemoglobin Concent 34, Red Cell Distribution Width 14.5, Platelet Count 224, Mean Platelet Volume 9.4, Neutrophils (%) (Auto) 90H, Lymphocytes (%) (Auto) 4L, Monocytes (%) (Auto) 6, Eosinophils (%) (Auto) 0, Basophils (%) (Auto) 0, Neutrophils # (Auto) 22.5H, Lymphocytes # (Auto) 0.9L, Monocytes # (Auto) 1.6H, Eosinophils # (Auto) 0.0, Basophils # (Auto) 0.0, Activated Partial Thromboplast Time > 200*H, Corrected Calcium 7.9L, Phosphorus Level 4.9H, Total Bilirubin 1.1H, Aspartate Amino Transf (AST/SGOT) 199H, Alanine Aminotransferase (ALT/SGPT) 219H, Alkaline Phosphatase 46, Total Protein 5.7L 10/23/18 03:50: Blood Gas Puncture Site RIGHT RADIAL, Blood Gas Patient Temperature 97.6, Arterial Blood pH 7.27*L, Arterial Blood Partial Pressure CO2 33L, Arterial Blood Partial Pressure O2 99H, Arterial Blood HCO3 15*L, Arterial Blood Total CO2 15.6L, Arterial Blood Oxygen Saturation 98, Arterial Blood Base Excess - 11.1L, Ridge Test YES-POS, Blood Gas Ventilator Setting YES, Blood Gas Inspired Oxygen 65% 10/23/18 05:40: Lactic Acid Level 6.28*H 10/23/18 06:00: Urine Color YELLOW, Urine Clarity SLIGHTLY CLOUDY, Urine pH 5, Urine Specific [place] 1.025H, Urine Protein 4+, Urine Glucose (UA) 1+H, Urine Ketones NEGATIVE, Urine Nitrite NEGATIVE, Urine Bilirubin NEGATIVE, Urine Urobilinogen 1, Urine Leukocyte Esterase 3+H, Urine RBC (Auto) 5+H, Urine RBC >100H, Urine WBC 10-25H, Urine Squamous Epithelial Cells 0-2, Urine Crystals NONE, Urine Bacteria LARGEH, Urine Casts PRESENT, Urine Granular Casts 0-2H, Urine Waxy Casts RAREH, Urine Mucus SMALLH, Urine Culture Indicated YES 10/23/18 09:10: Glucometer 269H 10/23/18 10:15: Activated Partial Thromboplast Time 84H Microbiology 10/22/18 Gram Stain, Resulted Pending 10/22/18 Sputum Culture - Preliminary, Resulted Usual upper respiratory carol A/P: Assessment/Dx: Postcardiopulmonary arrest. persistent atrial fibrillation, acute on chronic diastolic heart failure, Hyponatremia, Hypertension, Diabetes, Peripheral edema, Acute on chronic kidney injury, Positive troponin, Positive BNP Plan: Postcardiopulmonary arrest. Says the patient did not have telemetry did not show what the rhythm was. The EKG postcode shows atrial fibrillation with no ST-T wave abnormalities. 2 multiform PVCs are noted. She was intubated and ventilated. Unclear etiology of cardiopulmonary arrest. Could be pulmonary in nature as well. PE is also one of the differentials since the patient was not on oral anticoagulation. I had recommended oral anticoagulation earlier in the admission but the patient refused. Serial troponin. Stat echocardiogram. I will start IV amiodarone. If significant elevation of troponin, will consider coronary angiography. Otherwise mildly positive troponin are expected post CPR. Earlier in the admission Patient does not consent to oral anticoagulation therapy. I discussed at length about the risk of stroke however the patient does not want any bleeding. We will continue with rate control. acute on chronic diastolic heart failure, will give a dose of Lasix. Mild abnormal troponin. Although she does not have any significant chest pain but has mild shortness of breath. Lexiscan stress test done yesterday shows small anterior lateral reversible defect. Treat medically unless she has recurrent symptoms. Hyponatremia, deferred to Dr. Crane. Acute on chronic kidney injury, unclear etiology. Diabetic nephropathy as a differential. Family considering comfort care. Thank you for your consultation. Please call me if you have any questions. Giovani Chan MD, FACP, FACC, FSCAI, FHRS, CCDS Interventional Cardiology Cardiac Electrophysiology Vascular Medicine and Endovascular Interventions Focused Exam Lactate Level 10/23/18 00:30: Lactic Acid Level 3.86*H 10/23/18 03:00: Lactic Acid Level 5.09*H 10/23/18 05:40: Lactic Acid Level 6.28*H Leora CHAN MD Oct 23, 2018 16:44
--- NOTE | 2018-10-23 16:47 | Cardiology Stress Test Report ---
Stress Test Report Type of NM Stress Test: Test Type: LEXISCAN 0.4MG/5ML Date of Procedure/Referring: Date of Procedure: Oct 19, 2018 PCP Marcia Crane MD Admitting Physician Marcia Crane MD Indications: Chest pain Baseline Heart Rate: 94 Baseline Blood Pressure: Blood Pressure Systolic: 158 Blood Pressure Diastolic: 44 Baseline EKG: Baseline EKG: atrial fibrillation Summary & Conclusion: Summary: The patient was brought to the stress lab after informed consent was taken. Stress test was performed according to the Lexiscan protocol. 0.4 mg of IV Lexiscan was given. Low-grade exercise was performed. Baseline EKG showed atrial fibrillation rhythm at 94 BPM. Initial blood pressure was 153/86 mmHg. Maximum heart rate was 120 bpm and blood pressure 136/75 mmHg. Patient did not have any chest pain, arrhythmias or ST segment changes during the stress test. Mild ST depression at baseline. 7.61 mCi of Myoview were given for rest imaging and 23.5 mCi of Myoview given f or stress imaging. Small anterior lateral reversible defect. Conclusion: Pharmacological stress test was negative for ischemia. Small anterior lateral reversible defect. Clinical correlation is recommended. It was a non-gated study and there was no attenuation correction, therefore quality of the study was moderate. Leora ERICKSON MD Oct 23, 2018 16:47
--- NOTE | 2018-10-25 08:31 | Diagnostic Imaging Report ---
PROCEDURE: US abdomen complete. TECHNIQUE: Multiple real-time grayscale images were obtained over the abdomen in various projections. INDICATION: Liver and renal failure and atrial fibrillation. FINDINGS: Liver is normal in size at 16 cm. No discrete liver mass is identified. Portal vein is patent and shows normal direction of flow. Gallbladder is surgically absent. Extrahepatic bile duct is not visualized. No definite biliary ductal dilatation is seen. Spleen is small at 7.8 cm and demonstrates some heterogeneity. There is perisplenic ascites noted. Aorta was not visualized. IVC is patent. Kidneys are without hydronephrosis or calculi. Left kidney is very poorly visualized. There does appear to be a left pleural effusion. IMPRESSION: Limited study. There does appear to be a left pleural effusion and ascites. No other significant abnormality is seen. Dictated by: Dictated on workstation # [id number]
--- NOTE | 2018-10-27 11:20 | Physician Query Clarification ---
PQ-Intro New Diagnosis Admission/Discharge Admission Date: Oct 19, 2018 at 10:00 Discharge Date: Oct 23, 2018 at 14:55 The medical record reflects the following clinical scenario: History/Risk Factors: HTN w/ diastolic heart failure, CKD stg 3, Atrial fibrillation Clinical Findings: elevated troponin - 0.039 - 0.468, Lexiscan - small anterior lateral reversible defect Treatment: IV fluids, IV Amiodarone Question: What condition best reflects the above clinical scenario? Please document a response in the Progress Noter or Discharge Summary. 1. NSTEMI 2. type 2 CA 3. Other, with explanation of the clinical findings. 4. Clinically undetermined, no explanation for the clinical findings. PHYSICIAN RESPONSE What condition reflects above: 2 Please remember a lack of response to the above will prompt a phone page by [facility] staff. In responding to this query, please exercise your independent professional judgment. The purpose of this communication is to more accurately reflect the complexity of your patients condition. The fact that a question is asked does not imply that any particular answer is desired or expected. Thank you for your timely response to this clarification. Requestors name: Li THIS PHYSICIAN QUERY FORM IS A PERMANENT PART OF THE MEDICAL RECORD LI PEACOCK Oct 27, 2018 11:20 Leora ERICKSON MD Oct 27, 2018 12:45
== END 2018-10-23 14:55 | disposition expired ==
LOC: EDUNIT# 07:16 → ER 07:17 → 4TH 10:00 → ICU 10-22 14:08
PROVIDERS: ADMIT Family Medicine; ATTEND Family Medicine
PROC: 0BH17EZ Insertion of Endotracheal Airway into Trachea, Via Natural or Artificial Opening (ICD-10-PCS; principal; 2018-10-22)
PROC: 5A1935Z Respiratory Ventilation, Less than 24 Consecutive Hours (ICD-10-PCS; 2018-10-22)
DX: I48.1 Persistent atrial fibrillation (principal); E87.1 Hypo-osmolality and hyponatremia; A41.9 Sepsis, unspecified organism; R65.21 Severe sepsis with septic shock; J96.01 Acute respiratory failure with hypoxia; I21.A1 Myocardial infarction type 2; I50.33 Acute on chronic diastolic (congestive) heart failure; Z66 Do not resuscitate; Z51.5 Encounter for palliative care; I13.0 Hypertensive heart and chronic kidney disease with heart failure and stage 1 through stage 4 chronic kidney disease, or unspecified chronic kidney disease; E11.21 Type 2 diabetes mellitus with diabetic nephropathy; K72.00 Acute and subacute hepatic failure without coma; N17.9 Acute kidney failure, unspecified; I46.9 Cardiac arrest, cause unspecified; E87.2 Acidosis; N18.3 Chronic kidney disease, stage 3 (moderate); I25.10 Atherosclerotic heart disease of native coronary artery without angina pectoris; I49.3 Ventricular premature depolarization; K59.00 Constipation, unspecified; H54.7 Unspecified visual loss; J30.2 Other seasonal allergic rhinitis; E11.51 Type 2 diabetes mellitus with diabetic peripheral angiopathy without gangrene; H35.30 Unspecified macular degeneration; E78.00 Pure hypercholesterolemia, unspecified; R01.1 Cardiac murmur, unspecified; K21.9 Gastro-esophageal reflux disease without esophagitis; M19.91 Primary osteoarthritis, unspecified site; Z91.19 Patient's noncompliance with other medical treatment and regimen; Z86.73 Personal history of transient ischemic attack (TIA), and cerebral infarction without residual deficits; Z86.711 Personal history of pulmonary embolism
CPT/HCPCS: 36415; 36600; 70450; 71045; 76700; 80048; 80053; 81000; 82040; 82805; 82962; 83605; 83735; 83880; 84100; 84443; 84478; 84484; 85007; 85018; 85025; 85027; 85610; 85730; 87040; 87070; 87077; 87081; 87088; 87186; 87205; 93005; 93041; 93306; 93970; 94002; 94640; 94799; 96360